=== PATIENT | female | born 1960 | race African-American/Black ===

== ENCOUNTER 2016-08-12 02:12 | Observation (INO) | payer MEDICARE, MEDICAID ==
[~2016-08-12] VITALS: Ht 157.5 cm; Wt 84.4 kg
[2016-08-12] VITALS (11 sets, daily range): BP systolic 81–104; BP diastolic 42–65
[~2016-08-12 02:12] MED LIST: ACTICIN; ASCO100083 PO; BACL10TA PO; BUPR150T14 PO; BUPR150T6 PO; CHOL5000 PO; CLIN300C3 PO; DEXL60CA PO; DEXL60CA5 PO; DULO60CA58 PO; DULO60CA6 PO; ERGO400C; ESTR-17 PO; ESTR0.5T; ESTR2TAB PO; FERR-47 PO; FEXO180T PO; FLUC200T PO; HCT25T PO; HUMULIN R; HYDR-757 PO; HYDR25CA5 PO; HYDR50TA3 PO; HYOS0.1232 SL; INDO25CA PO; INSU100V3; INSU100V6 SC; KETO-22 PO; LEVO100T7 PO; LIOT25TA3 PO; LIOT25TA4 PO; LISD50CA2 PO; LISD70CA3 PO; LISI40TA PO; LORA2TAB PO; LVT.1T PO; MAGN250T7 PO; METO-274 PO; METO50TA7 PO; METO5TAB79 PO; OXCA150T PO; OXYC1TAB87 PO; OXYC1TAB95; OXYC1TAB95 PO; OXYC5TAB PO; POLY255P PO; POTA99TA15 PO; PREG100C PO; PREG100C22 PO; PREN1COM PO; PRM5C60 TOP; PROG100C3 PO; PROP15DR28 OP; VITA1CAP21 PO; VIVELLE-DOT TOP; [UNRECOGNIZED DRUG - CODE]; [UNRECOGNIZED DRUG - CODE] PO; [UNRECOGNIZED DRUG - CODE] TP; [UNRECOGNIZED DRUG - OTHER] PO
--- OUTSIDE RECORDS SUMMARY | 2016-08-12 02:23 | XMS REPORT | Continuity of Care Document ---
Author Author [facility] Organization [facility] Address Unknown Phone Unavailable Care Team Providers Care Header Machine Operator Name Role Phone Jahaira Granado PCP [phone] Source Comments Some departments are not documenting in the electronic medical record. If you do not see the information that you expected, contact Release of Information in the Health Information Management department at [phone] for further assistance in locating additional records.[facility] Active Allergies and Adverse Reactions Allergen Noted Date Severity Reactions Comments Codeine 11/11/2006 Allergy recorded in SMS: Codeine Ibuprofen 11/11/2006 Allergy recorded in SMS: IBUPROFEN Metronidazole 11/11/2006 Allergy recorded in SMS: FLAGYL Mustard 10/05/2013 HIVES Hives in eyes Penicillins 11/11/2006 Allergy recorded in SMS: PENICILLINS Current Medications Prescription Sig. Disp. Refills Start End Date Status Date levothyroxine (SYNTHROID) Take 100 mcg by mouth Active 100 mcg tablet daily. liothyronine (CYTOMEL) 25 Take 25 mcg by mouth Active mcg Tab daily. metoprolol XL (TOPROL XL) Take 100 mg by mouth Active 100 mg tablet daily. lisinopril (PRINIVIL, Take 80 mg by mouth Active ZESTRIL) 40 mg tablet daily. baclofen (LIORESAL) 10 mg Take 10 mg by mouth three Active tablet times daily. pregabalin (LYRICA) 100 Take 100 mg by mouth Active mg capsule three times daily. hydrochlorothiazide Take 50 mg by mouth Active (HYDRODIURIL) 50 mg daily. tablet LORazepam (ATIVAN) 2 mg Take 1 mg by mouth at Active tablet bedtime daily. dexlansoprazole (+) Take 60 mg by mouth Active (DEXILANT) 60 mg capsule daily. buPROPion XL (WELLBUTRIN Take 300 mg by mouth Active XL) 300 mg tablet every morning. estradiol (ESTRACE) 2 mg Take 4 mg by mouth daily. Active tablet OXcarbazepine (TRILEPTAL) Take 150 mg by mouth at Active 150 mg tablet bedtime daily. ASCORBATE CALCIUM Take 4,000 mg by mouth Active (VITAMIN C PO) daily. ERGOCALCIFEROL (VITAMIN Take 5,000 Units by mouth Active D2) (VITAMIN D PO) daily. Carboxymethylcellulose-Gl Place into or around Active ycern (OPTIVE) 0.5-0.9 % eye(s). 4-5 times daily drop in each eye SAXagliptin-metformin Take 1 Tab by mouth Active (KOMBIGLYZE XR) 2.5-1,000 daily. mg TM24 fesoterodine ER(+) Take 4 mg by mouth daily. Active (TOVIAZ) 4 mg tablet dicyclomine (BENTYL) 10 Take 1 Cap by mouth three 90 Cap 5 06/05/20 Active mg capsule times daily as needed. [address] (CYMBALTA) Take 60 mg by mouth twice Active 60 mg capsule daily. polyethylene glycol 3350 MIX 17 GRAMS( 1 CAPFUL) 527 g 0 07/01/20 Active (GLYCOLAX; MIRALAX) 17 ONCE DAILY 16 gram/dose powder Active Problems Problem Noted Date Essential hypertension with goal blood pressure less than 140/90 01/23/2016 Overview: Formatting of this note may be different from the original. Hypertension Management: Medication adherent: all of the time Treatment goal: 140/90 Outside blood pressures being performed: Yes BP Readings from Last 3 Encounters: 04/26/14 113/68 11/30/13 153/98 11/02/13 164/76 She denies significant light-headedness. Imp: Hypertension controlled Plan: Discussed hypertension and reviewed goals. Are barriers to achieving goals present? No Medication education provided. Patient voiced understanding? Yes Patient able to self-manage and ready to comply? Yes Educational resources identified? Verbal Counseling Neuropathy (HCC) 01/23/2016 Overview: Continue lyrica Healthcare maintenance 01/23/2016 Overview: Formatting of this note may be different from the original. Health Maintenance Topic Date Due PHYSICAL (COMPREHENSIVE) EXAM 1965 PERTUSSIS VACCINE 1969 TETANUS VACCINE 1975 FOOT EXAM 1976 DILATED EYE EXAM 1976 MICROALBUMIN 1976 PNEUMONIA VACCINE (DM) 1976 CERVICAL CANCER SCREENING 1979 BREAST CANCER SCREENING 1998 COLORECTAL CANCER SCREENING 2008 HBA1C 03/21/2014 INFLUENZA VACCINE 03/27/2016 Abdominal pain 01/23/2016 Overview: 55 F with PMHx as below presenting today for abdominal pain and referral to surgery. She follows with an outside PCP. Site: LUQ, RUQ Onset: many years Progression: worse in the last 6 months Radiation: none Associated symptoms: denies any nausea and vomiting Timing: intermittent, daily Exacerbating factors: movement Relieving factors: PPI Severity: can be severe in intensity Patient complains of hernia in upper part of abdominal incision. She has had multiple abdominal surgeries starting with TAHBSO in 1998, colon rupture s/p repair in 2001, umblical hernia repair in 2001, hiatal hernia repair in 2002 complicated by another colon rupture s/p repair, incisional hernia repair W MESH in 2003 and cholecystectomy in 2012. Physical exam: small incisional hernia noted Plan Discussed with patient and daughter, patient will continue to follow with her outside PCP for her primary care needs We will help coordinating her CT scan and gen surgery referral and will see the patient 1-2 times an year as needed CT scan and gen surg referral ordered All questions answered Post-operative pain 10/19/2013 S/P total knee arthroplasty 10/19/2013 Diabetes mellitus (HCC) 10/18/2013 OA (osteoarthritis) of knee 10/18/2013 GERD (gastroesophageal reflux disease) 09/21/2013 Overview: Continue PPI Hypothyroidism 09/21/2013 Depression 09/21/2013 Overview: Continue wellbutrin and cymbalta HTN (hypertension) 09/21/2013 Diabetes (HCC) 09/21/2013 Overview: Formatting of this note may be different from the original. Diabetes Management: Diet adherent: all of the time Medication adherent: all of the time Patient is consistent with home glucose monitoring: Yes The patient has not had hypoglycemic reactions Lab Results Component Value Date/Time HEMOGLOBIN A1C 5.2 09/21/2013 12:25 PM CREATININE 0.75 10/21/2013 03:48 AM Microalbumin tested in last 12 months? Yes Eye exam within the last 12 months? Yes Comprehensive Foot exam within the last 12 months? Yes Pneumonia shot current? Yes The patient is taking a daily aspirin:Yes The patient is taking an MACY inhibitor or an ARB:Yes The patient is taking a statin:Yes Impression: Diabetes - under excellent control Plan: Discussed general issues about diabetes pathophysiology and management. Discussed exercise management and diet with emphasis on vegetables, fruit and lean meat. Discussed foot care. Reminded to get retinal exam annually and dental appointment every 6 months. Treatment goals: A1C < or=6.5 BP <140/90 Are barriers to achieving goals present? No Medication education provided. Patient voiced understanding? Yes Patient able to self-manage and ready to comply? Yes Educational resources identified? Verbal Counseling Primary localized osteoarthrosis, lower leg 09/21/2013 Pain in joint, lower leg 09/21/2013 Gout 09/21/2013 Hip joint replacement by other means 12/01/2007 Most Recent Encounters Date Type Specialty Providers Description 06/29/2016 Refill General Internal Medicine Portia Lozano MD 06/17/2016 Office Visit Gastroenterology Bobby Felder MD Generalized abdominal pain (Primary Dx); Gastroesophageal reflux disease without esophagitis; Chronic myofascial pain 06/04/2016 [facility] Nikky Tate MD Encounter 06/04/2016 [facility] Nikky Tate MD Encounter 06/04/2016 Office Visit Orthopedic Surgery Nikky Tate MD Hip joint replacement status (Primary Dx); Status post total right knee replacement [Z96.651] 06/04/2016 Telephone Gastroenterology Bobby Felder MD Medication Follow-up 06/04/2016 Ancillary Orthopedic Surgery Nikky Tate MD S/P hip replacement, Orders right (Primary Dx) 05/28/2016 [facility] Bobby Felder MD Encounter 05/28/2016 Endo Rslt Enc Dillon Jones MD 05/28/2016 Anesthesia Nikky Mclaughlin CRNA Event 05/28/2016 Ancillary Gastroenterology Bobby Felder MD Left upper quadrant pain Orders (Primary Dx) 05/28/2016 Surgery Bobby Felder MD ESOPHAGOGASTRODUODENOSCOP Y 05/21/2016 Surgery Bobby Felder MD HYDROGEN BREATH TEST 05/16/2016 Telephone Skyla Max RN Pre-Procedure Instructions 05/15/2016 Orders Only Orthopedic Surgery Nikky Tate MD Presence of right artificial knee joint (Primary Dx) Social History Tobacco Use Types Packs/Day Years Used Date Former Smoker Cigarettes 2 34 Smokeless Tobacco: Never Used Tobacco Cessation: Counseling Given: Yes Comments: Alcohol Use Drinks/Week oz/Week Comments Yes 0 Standard 0.0 occ drinks or equivalent Last Filed Vital Signs Vital Sign Reading Time Taken Blood Pressure 110/59 06/17/2016 1:58 PM PERSONNEL RESEARCH PSYCHOLOGIST Pulse 69 06/17/2016 1:58 PM PERSONNEL RESEARCH PSYCHOLOGIST Temperature 36.7 C (98 F) 06/17/2016 1:58 PM PERSONNEL RESEARCH PSYCHOLOGIST Respiratory Rate 18 04/18/2016 8:48 AM CDT Height 1.575 m (5' 2") 06/17/2016 1:58 PM PERSONNEL RESEARCH PSYCHOLOGIST Weight 86.456 kg (190 lb 9.6 oz) 06/17/2016 1:58 PM PERSONNEL RESEARCH PSYCHOLOGIST Body Mass Index 34.85 06/17/2016 1:58 PM PERSONNEL RESEARCH PSYCHOLOGIST Oxygen Saturation 95% 05/28/2016 10:33 AM CDT Plan of Care Date Type Specialty Providers Description 09/02/2016 Appointment General Internal Medicine Marck Granado MBBS [address] [facility] [address] [place] [address] [phone] (Fax) Health Maintenance Due Date Last Done Comments Hepatitis C Screening 1960 Physical (Comprehensive) 1965 Exam Pertussis Vaccine 1969 Tetanus Vaccine 1975 Dilated Eye Exam 1976 Foot Exam 1976 Microalbumin 1976 Pneumonia Vaccine (Dm) 1976 Cervical Cancer Screening 1979 Breast Cancer Screening 1998 Colorectal Cancer 2008 Screening Hba1c 03/21/2014 09/21/2013 Influenza Vaccine 03/27/2016 Procedures from Last 3 Months Procedure Name Priority Date/Time Associated Diagnosis Comments ESOPHAGOGASTRODUODENOSCOP 05/28/2016 Intestinal bacterial Y 9:30 AM CDT overgrowth Special Needs 1st Call / 1st Res - EGD - Cld pt & res appt 04/02/16 @ 137EGD - Pt lvms, wants to res appt due to a conflict w/another appt 04/02/16 @ 1033 PROCEDURES-SCAN 05/22/2016 Results for this 1:40 PM CDT procedure are in the results section. HYDROGEN BREATH TEST 05/21/2016 Intestinal bacterial 9:15 AM CDT overgrowth Special Needs 1st Call - Hydrogen Breath Test - Cld pt & sched appt 04/01/16 @ 120 Results from Last 3 Months HIP MIN 4 VIEWS W PELVIS RT (06/04/2016 11:05 AM) Impressions Stable appearance of right hip arthroplasty. Approved by Luis Fuentes M.D. on 06/04/2016 1:14 PM By my electronic signature, I attest that I have personally reviewed the images for this examination and formulated the interpretations and opinions expressed in this report Finalized by Tank Navarro M.D. on 06/04/2016 3:12 PM. Dictated by Luis Fuentes M.D. on 06/04/2016 11:15 AM. Narrative HIP MIN 4 VIEWS W PELVIS RT CLINICAL HISTORY: Female, 56 years old. pain. COMPARISON: Hip radiograph from April 20, 2013 TECHNIQUE:HIP MIN 4 VIEWS W PELVIS RT FINDINGS: There is redemonstration of a right hip arthroplasty. There is a non-fenestrated , smooth, tapered, noncemented femoral stem. The acetabular component is fixed with a single threaded screw. Alignment is satisfactory, and there is no evidence of periprosthetic fracture. Mild left hip arthropathy. Radiopaque density projects over the L4/5 interspace which may correlate to phleboliths noted on prior CT. Procedure Note Interface, Radiant Results - Wed Jun 04, 2016 3:15 PM PERSONNEL RESEARCH PSYCHOLOGIST HIP MIN 4 VIEWS W PELVIS RT CLINICAL HISTORY: Female, 56 years old. pain. COMPARISON: Hip radiograph from April 20, 2013 TECHNIQUE: HIP MIN 4 VIEWS W PELVIS RT FINDINGS: There is redemonstration of a right hip arthroplasty. There is a non-fenestrated , smooth, tapered, noncemented femoral stem. The acetabular component is fixed with a single threaded screw. Alignment is satisfactory, and there is no evidence of periprosthetic fracture. Mild left hip arthropathy. Radiopaque density projects over the L4/5 interspace which may correlate to phleboliths noted on prior CT. IMPRESSION Stable appearance of right hip arthroplasty. Approved by Luis Fuentes M.D. on 06/04/2016 1:14 PM By my electronic signature, I attest that I have personally reviewed the images for this examination and formulated the interpretations and opinions expressed in this report Finalized by Tank Navarro M.D. on 06/04/2016 3:12 PM. Dictated by Luis Fuentes M.D. on 06/04/2016 11:15 AM. KNEE 3 VIEWS RIGHT (06/04/2016 11:05 AM) Impressions Findings/Impression: 1. There is a right total knee arthroplasty with resurfacing of patella redemonstrated. No abnormal periprosthetic lucency. No acute osseous abnormality 2. There is decreased anterior soft tissue swelling and decreased joint effusion. Finalized by Ilya Galloway M.D. on 06/04/2016 11:12 AM. Dictated by Ilya Galloway M.D. on 06/04/2016 11:11 AM. Narrative KNEE 3 VIEWS RIGHT Indication: S/P Total Knee. Presence of right artificial knee joint Comparison: April 26, 2014 Procedure Note Interface, Radiant Results - Wed Jun 04, 2016 11:16 AM PERSONNEL RESEARCH PSYCHOLOGIST KNEE 3 VIEWS RIGHT Indication: S/P Total Knee. Presence of right artificial knee joint Comparison: April 26, 2014 IMPRESSION Findings/Impression: 1. There is a right total knee arthroplasty with resurfacing of patella redemonstrated. No abnormal periprosthetic lucency. No acute osseous abnormality 2. There is decreased anterior soft tissue swelling and decreased joint effusion. Finalized by Ilya Galloway M.D. on 06/04/2016 11:12 AM. Dictated by Ilya Galloway M.D. on 06/04/2016 11:11 AM. POC GLUCOSE (05/28/2016 9:49 AM) Component Value Range Glucose, POC 123 (H) 70-100 MG/DL EGD (05/28/2016 9:41 AM) Component Value Range Provation Report Patient Name: Caty Villagomez Procedure Date: 05/28/2016 9:41 AM CSN: [id number] Date of : 1960 Gender: Female Attending Physician: Bobby Felder MD Procedure: Upper GI endoscopy Indications: Ge neralized abdominal pain, Suspected esophageal reflux Providers: Bobby Felder MD (Doctor), Trinh Light (Nurse), Jose Scanlon Application Processor (Application Processor) Referring Physician: Dillon Jones Medications: Mo nitored Anesthesia Care Complications: No immediate complications. Procedure: Pre-Anesthesia Assessment: - Prior to the procedure, a History and Physical was performed, and patient medications and allergies were reviewed. The patient's tolerance of previous anesthesia was also reviewed. The risks and benefits of the procedure and the sedation options and risks were discussed with the patient. All questions were answered, and informed consent was obtained. Prior Anticoagulants: The patient has taken no previous anticoagulant or antiplatelet agents. ASA Grade Assessment: III - A patient with severe systemic disease. After reviewing the risks and benefits, the patient was deemed in satisfactory condition to undergo the procedure. After obtaining informed consent, the endoscope was passed under direct vision. Throughout the procedure, the patient's blood pressure, pulse, and oxygen saturations were monitored continuously. The Endoscope [id number] was introduced through the mouth, and advanced to the third part of duodenum. The upper GI endoscopy was accomplished without difficulty. The patient tolerated the procedure well. Findings: Esophagogastric landmarks were identified: the gastroesophageal junction was found at 38 cm from the incisors. The examined esophagus was normal. No Stack's esophagus was seen with HD white light or NBI. A medium amount of food (residue) was found in the gastric body. Changes of in tact fundoplication wrap seen on retroflexion. The entire examined stomach was normal. The examined duodenum was normal. Impression: - Esophagogastric landmarks identified. - Normal esophagus. No Stack's was seen. - A medium amount of food (residue) in the stomach. - Normal stomach. In tact wrap seen on retroflexion. - Normal examined duodenum. - No specimens collected. Estimated Blood Loss: Estimated blood loss: none. Recommendation: - Patient has a contact number available for emergencies. The signs and symptoms of potential delayed complications were discussed with the patient. Return to normal activities tomorrow. Written discharge instructions were provided to the patient. - Resume previous diet. - Continue present medications. Scope In: 10:05:34 AM Scope Out: 10:10:04 AM Total Procedure Duration Time 0 hours 4 minutes 30 seconds Procedure Code(s): --- Professional --- 88452, Esophagogastroduodenoscopy, flexible, transoral; diagnostic, including collection of specimen(s) by brushing or washing, when performed (separate procedure) Diagnosis Code(s): --- Professional --- R10.84, Generalized abdominal pain CPT copyright 2015 [employer]. All rights reserved. The codes documented in this report are preliminary and upon dipping machine operator review may be revised to meet current compliance requirements. Attending Participation: I personally performed the entire procedure. MD Bobby Nelson MD 05/28/2016 10:13:46 AM The attending physician has electronically signed and finalized this document. Number of Addenda: 0 Note Initiated On: 05/28/2016 9:41 AM US ABDOMEN LIMITED (05/28/2016 7:58 AM) Impressions Postsurgical changes of prior abdominal wall hernia repair. No evidence of recurrent abdominal wall hernia. Approved by Irene Cyr M.D. on 05/28/2016 11:43 AM By my electronic signature, I attest that I have personally reviewed the images for this examination and formulated the interpretations and opinions expressed in this report Finalized by Allegra Ohara M.D. on 05/28/2016 5:35 PM. Dictated by Irene Cyr M.D. on 05/28/2016 8:19 AM. Narrative Limited abdominal ultrasound. HISTORY: 56-year-old female with history of prior abdominal surgeries. Left upper quadrant pain. Evaluate for hernias. TECHNIQUE: Multiple real-time grayscale sonographic images were obtained of the areas of interest of the abdomen. Additional color Doppler images were obtained. COMPARISON: Correlation is made with CT of the abdomen and pelvis February 01, 2016. FINDINGS: Focused imaging of the abdomen was performed in the right lower quadrant and left lower quadrant as directed by the patient for areas of pain and palpable concern. At both of these sites, there is mild irregularity at the anterior margin of the rectus musculature. On Valsalva maneuver, there is no evidence of herniated content, omental fat or bowel, through an abdominal wall defect. No fluid collection or mass is identified in the subcutaneous tissues. In the left lower quadrant, small focal areas of shadowing noted, likely postoperative in nature. Procedure Note Interface, Radiant Results - ThuMay 28, 2016 5:38 PM CDT Limited abdominal ultrasound. HISTORY: 56-year-old female with history of prior abdominal surgeries. Left upper quadrant pain. Evaluate for hernias. TECHNIQUE: Multiple real-time grayscale sonographic images were obtained of the areas of interest of the abdomen. Additional color Doppler images were obtained. COMPARISON: Correlation is made with CT of the abdomen and pelvis February 01, 2016. FINDINGS: Focused imaging of the abdomen was performed in the right lower quadrant and left lower quadrant as directed by the patient for areas of pain and palpable concern. At both of these sites, there is mild irregularity at the anterior margin of the rectus musculature. On Valsalva maneuver, there is no evidence of herniated content, omental fat or bowel, through an abdominal wall defect. No fluid collection or mass is identified in the subcutaneous tissues. In the left lower quadrant, small focal areas of shadowing noted, likely postoperative in nature. IMPRESSION Postsurgical changes of prior abdominal wall hernia repair. No evidence of recurrent abdominal wall hernia. Approved by Irene Cyr M.D. on 05/28/2016 11:43 AM By my electronic signature, I attest that I have personally reviewed the images for this examination and formulated the interpretations and opinions expressed in this report Finalized by Allegra Ohara M.D. on 05/28/2016 5:35 PM. Dictated by Irene Cyr M.D. on 05/28/2016 8:19 AM. PROCEDURES-SCAN (05/22/2016 1:40 PM) Narrative Ordered by an unspecified provider.
[2016-08-12] MEDS ORDERED: NS IV 1000 ML 1,000 ML IV ONE ×2 (02:25→04:09)
[2016-08-12 02:28] LABS: ABG BASE EXCESS -2.5 MMOL/L (-2.5-2.5); ABG HCO3 24 MMOL/L (23-27); ABG OXYGEN SATURATION 96 % (94-100); ABG PCO2 48 MMHG (35-45); ABG PO2 82 MMHG (79-93)
[2016-08-12 02:31] LABS: ABG PH 7.32 (7.37-7.43); ALLENS TEST YES-POS
[2016-08-12 02:34] LABS: BASOPHILS % (AUTO) 0 % (0-10); EOSINOPHILS % (AUTO) 0 % (0-10); LYMPHOCYTES # (AUTO) 1.3 X 10^3 (1.0-4.0); LYMPHOCYTES % (AUTO) 10 % (12-44); MEAN CORPUSCULAR HEMOGLOBIN 30 PG (25-34); MEAN CORPUSCULAR HGB CONC 33 G/DL (32-36); MEAN CORPUSCULAR VOLUME 89 FL (80-99); MEAN PLATELET VOLUME 12.1 FL (7.4-10.4); MONOCYTES # (AUTO) 1.2 X 10^3 (0.0-1.0); MONOCYTES % (AUTO) 9 % (0-12); NEUTROPHILS # (AUTO) 10.9 X 10^3 (1.8-7.8); NEUTROPHILS % (AUTO) 81 % (42-75); PLATELET COUNT 307 10^3/uL (130-400); RED BLOOD COUNT 4.34 10^6/uL (4.35-5.85); RED CELL DISTRIBUTION WIDTH 12.9 % (10.0-14.5); WHITE BLOOD COUNT 13.4 10^3/uL (4.3-11.0)
--- NOTE | 2016-08-12 02:38 | ED General ---
General Chief Complaint: Altered Mental Status Stated Complaint: VOMITING,NAUSEA Nursing Triage Note: Ems brought in by EMS. Daughter reports that patient has been lethargic Nursing Sepsis Screen: No Definite Risk Source of Information: EMS, Old Records Exam Limitations: Other (PT UNABLE TO GIVE ANY RELEVANT INFORMATION, SHE IS VERY DROWSY AND FALLS ASLEEP MID-SENTENCE) History of Present Illness Time Seen by Provider: 02:13 Initial Comments PT ARRIVES VIA EMS FROM HOME PT REPORTEDLY HAS HAD ALTERED MENTAL STATUS SINCE 2300 TONIGHT--"IN AND OUT OF CONSCIOUSNESS" PT WAS SITTING IN CHAIR AND WAS AWAKE ON THEIR ARRIVAL AT SCENE. PT SLEPT THE ENTIRE WAY HERE, BUT EASILY AWAKENED. PT C/O DIZZINESS AND HAS HAD NAUSEA. NO REPORTED VOMITING ACCUCHECK 224 BY EMS. NO OTHER INFORMATION IS OBTAINABLE ON ARRIVAL. DAUGHTER ARRIVES LATER, AND REPORTS THAT PT HAD TOLD HER THAT SHE HAD NOT FELT GOOD ALL DAY, BUT DID GO OUT AND RUN ERRANDS EARLIER, BUT WAS NOT FEELING WELL, BUT DID NOT STATE IN WHAT WAY SHE FELT BAD DAUGHTER FOUND HER AT 2300 TONIGHT IN THE BATHROOM VOMITING--EMESIS X 4 NO DIARRHEA NO ABDOMINAL PAIN PT C/O BEING DIZZY AT THAT TIME. PCP: DR. DURAN Allergies and Home Medications Allergies Coded Allergies: codeine (Verified Allergy, Unknown, 02/27/06) ibuprofen (Verified Allergy, Unknown, 02/27/06) metronidazole (Verified Allergy, Unknown, 02/27/06) penicillin G (Verified Allergy, Unknown, 02/27/06) Home Medications 12.5 MG PO DAILY (Reported) Baclofen 10 Mg Tablet #90 (Reported) Bupropion HCl 150 Mg Tablet.er #60 (Reported) Dexlansoprazole 60 Mg Cap.bp #60 (Reported) Dicyclomine HCl 10 Mg Capsule #90 (Reported) Duloxetine HCl 60 Mg Capsule.dr #30 (Reported) Estradiol 2 Mg Tablet #90 (Reported) Hydrochlorothiazide 50 Mg Tablet #90 (Reported) Insulin Regular, Human 1,000 Units/10 Ml Soln #20 (Reported) Levothyroxine Sodium 100 Mcg Tablet #30 (Reported) Liothyronine Sodium 25 Mcg Tablet #180 (Reported) Lisinopril 40 Mg Tablet #180 (Reported) Lorazepam 2 Mg Tablet #30 (Reported) Metoprolol Succinate 100 Mg Tab.er.24h #90 (Reported) Oxcarbazepine 150 Mg Tablet #180 (Reported) Polyethylene Glycol 3350 255 Gm Powder #527 (Reported) Pregabalin 100 Mg Capsule #90 (Reported) Prenat Vit Comb.10/Iron/Fa/Dha 1 Each Combo..pkg 1 EACH PO DAILY (Reported) Propylene Glycol/Peg 400 15 Ml Drp.lq.gel 15 ML OP QID (Reported) 2 DROPS IN EACH EYE QID Saxagliptin HCl/Metformin HCl 1 Each Tbmp.24hr #85 (Reported) Solifenacin Succinate 5 Mg Tablet #85 (Reported) Turmeric 1 Gm Powder 0.5 GM PO (Reported) Vitamin B Complex 1 Cap Capsule 1 CAP PO DAILY (Reported) Constitutional: see HPI dizziness malaise other (UNABLE TO OBTAIN ANY RELEVANT INFORMATION FROM PT, OTHER THAN SHE STATES SHE IS DIZZY) Psychiatric/Neurological: See HPI Past Hqyqexg-Aommuz-Dyeryu Hx Patient Social History Alcohol Use: Rarely Uses Recreational Drug Use: No Smoking Status: Current Everyday Smoker (1/2 PPD) Type Used: Cigarettes Recent Foreign Travel: No Contact w/Someone Who Travel: No Recent Infectious Disease Expo: No Recent Hopitalizations: No Physical Abuse Screen: No Sexual Abuse: No Immunizations Up To Date Tetanus Booster (TDap): Unknown Surgeries HX Surgeries: Yes (EGD/COLONSCOPY; HIATAL HERNIA REPAIR; 11 SURGERIES ON ABDOMEN-PT DOES NOT KNOW WHAT KIND OF SURGERIES, "INTESTINES RUPTURED"-POSSIBLE VALENTIN:, HERNIA REPAIRS, DIVERTICULTITS; 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 Genitourinary Hx Genitourinary Disorders: No Gastrointestinal Hx Gastrointestinal Disorders: Yes (GASTRITIS) Gastrointestinal Disorders: Abdominal Hernia, Gastroesophageal Reflux, Diverticulosis, Esophagitis, Hiatal Hernia Musculoskeletal Hx Musculoskeletal Disorders: Yes (CHRONIC GENERALIZED PAIN, RIGHT KNEE TORN ACL; LEFT BKA 1960 FROM DEFECT) Musculoskeletal Disorders: Amputee, Chronic Back Pain, Gout Endocrine Hx Endocrine Disorders: Yes Endocrine Disorders: Diabetes, Insulin dep, Hypothyroidsim HEENT HX ENT Disorders: No Cancer Hx Cancer: No Psychosocial Hx Psychiatric Problems: Yes Behavioral Health Disorders: Anxiety Integumentary HX Skin/Integumentary Disorder: No Blood Transfusions Hx Blood Disorders: No Adverse Reaction to a Blood Tr: No Physical Exam Vital Signs Vital Sign - Last 12Hours 08/12/16 02:12 Temp 96.0 Pulse 67 Resp 16 B/P 108/52 Pulse Ox 97 O2 Delivery Room Air O2 Flow Rate 2 Capillary Refill : Less Than 3 Seconds General Appearance: No Apparent Distress Obese HEENT: PERRL/EOMI (PUPILS 2-3 MM/EQUAL/SOMEWHAT SLUGGISH) Neck: Full Range of Motion Normal Inspection Non Tender SuppleNo Carotid Bruit , No JVD Respiratory: Normal Breath Sounds No Accessory Muscle Use No Respiratory Distress Cardiovascular: Regular Rate, Rhythm No Edema No JVD No Murmur Gastrointestinal: Normal Bowel Sounds No Organomegaly No Pulsatile Mass Non Tender Soft Extremity: Non Tender No Calf Tenderness No Pedal Edema Other (LEFT LEG BKA; RIGHT LEG VERY COOL, BUT WITH FAIR CAPILLARY REFILL. UNALBE TO PALPATE PULSE IN RIGHT FOOT. ) Neurologic/Psychiatric: Other (COLIN DROWSY, BRIEFLY WAKENS TO VERBAL AND TACTILE STIMULI, SMILES AND LAUGHS A LITTLE, ANSWERS A VERY FEW SIMPLE QUESTIONS , THEN FALLS BACK ASLEEP MID-SENTENCE. NO SIGNIFICANT SLURRED SPEECH. MOTOR / SENSORY GROSSLY INTACT) Skin: Normal Color Warm/Dry Progress/Results/Core Measures Results/Orders Lab Results Laboratory Tests Test 08/12/16 02:22 08/12/16 02:24 08/12/16 02:25 08/12/16 03:04 Range/Units Glucometer 256 H 70-110 MG/DL Kilo Test YES-POS Arterial Blood Base Excess -2.5 -2.5-2.5 MMOL/L Arterial Blood HCO3 24 23-27 MMOL/L Arterial Blood Oxygen Saturation 96 94-100 % Arterial Blood Partial Pressure CO2 48 H 35-45 MMHG Arterial Blood Partial Pressure O2 82 79-93 MMHG Arterial Blood Total CO2 26.0 21.0-31.0 MMOL/L Arterial Blood pH 7.32 *L 7.37-7.43 Blood Gas Inspired Oxygen ROOM AIR Blood Gas Patient Temperature 96.0 Blood Gas Puncture Site LEFT RADIAL Blood Gas Ventilator Setting NO Acetaminophen Level < 10 L 10-30 UG/ML Activated Partial Thromboplast Time 27 24-35 SEC Alanine Aminotransferase (ALT/SGPT) 14 0-55 U/L Albumin 3.8 3.2-4.5 G/DL Alkaline Phosphatase 52 40-136 U/L Amylase Level 59 25-125 U/L Anion Gap 17 H 5-14 MMOL/L Aspartate Amino Transf (AST/SGOT) 10 5-34 U/L BUN/Creatinine Ratio 9 Basophils # (Auto) 0.0 0.0-0.1 10^3/uL Basophils (%) (Auto) 0 0-10 % Blood Urea Nitrogen 31 H 7-18 MG/DL Calcium Level 9.2 8.5-10.1 MG/DL Carbon Dioxide Level 19 L 21-32 MMOL/L Chloride Level 102 98-107 MMOL/L Creatinine 3.58 H 0.60-1.30 MG/DL Eosinophils # (Auto) 0.0 0.0-0.3 10^3/uL Eosinophils (%) (Auto) 0 0-10 % Estimat Glomerular Filtration Rate 16 Free Thyroxine 0.78 0.70-1.48 NG/DL Glucose Level 232 H 70-105 MG/DL Hematocrit 39 35-52 % Hemoglobin 12.8 11.5-16.0 G/DL INR Comment 1.0 0.8-1.4 Lipase 34 8-78 U/L Lymphocytes # (Auto) 1.3 1.0-4.0 X 10^3 Lymphocytes (%) (Auto) 10 L 12-44 % Magnesium Level 2.1 1.8-2.4 MG/DL Mean Corpuscular Hemoglobin 30 25-34 PG Mean Corpuscular Hemoglobin Concent 33 32-36 G/DL Mean Corpuscular Volume 89 80-99 FL Mean Platelet Volume 12.1 H 7.4-10.4 FL Monocytes # (Auto) 1.2 H 0.0-1.0 X 10^3 Monocytes (%) (Auto) 9 0-12 % Neutrophils # (Auto) 10.9 H 1.8-7.8 X 10^3 Neutrophils (%) (Auto) 81 H 42-75 % Platelet Count 307 130-400 10^3/uL Potassium Level 4.1 3.6-5.0 MMOL/L Prothrombin Time 12.9 12.2-14.7 SEC Red Blood Count 4.34 L 4.35-5.85 10^6/uL Red Cell Distribution Width 12.9 10.0-14.5 % Serum Alcohol < 10 <10 MG/DL Sodium Level 138 135-145 MMOL/L TSH [place] Testing 0.31 L 0.35-4.94 UIU/ML Total Bilirubin 0.3 0.1-1.0 MG/DL Total Protein 6.6 6.4-8.2 G/DL White Blood Count 13.4 H 4.3-11.0 10^3/uL Ur Tricyclic Antidepressants Screen NEGATIVE NEGATIVE Urine Amphetamines Screen NEGATIVE NEGATIVE Urine Bacteria MODERATE H /HPF Urine Barbiturates Screen NEGATIVE NEGATIVE Urine Benzodiazepines Screen POSITIVE H NEGATIVE Urine Bilirubin 1+ H NEGATIVE Urine Cannabinoids Screen NEGATIVE NEGATIVE Urine Casts PRESENT /LPF Urine Clarity CLEAR Urine Cocaine Screen NEGATIVE NEGATIVE Urine Color YELLOW Urine Crystals NONE /LPF Urine Culture Indicated YES Urine Glucose (UA) NEGATIVE NEGATIVE Urine Hyaline Casts 2-5 H /LPF Urine Ketones NEGATIVE NEGATIVE Urine Leukocyte Esterase 1+ H NEGATIVE Urine Methadone Screen NEGATIVE NEGATIVE Urine Methamphetamines Screen NEGATIVE NEGATIVE Urine Mucus NEGATIVE /LPF Urine Nitrite NEGATIVE NEGATIVE Urine Opiates Screen NEGATIVE NEGATIVE Urine Oxycodone Screen NEGATIVE NEGATIVE Urine Phencyclidine Screen NEGATIVE NEGATIVE Urine Propoxyphene Screen NEGATIVE NEGATIVE Urine Protein 2+ H NEGATIVE Urine RBC NONE /HPF Urine RBC (Auto) NEGATIVE NEGATIVE Urine Specific [place] 1.020 1.016-1.022 Urine Squamous Epithelial Cells 2-5 /HPF Urine Urobilinogen NORMAL NORMAL MG/DL Urine WBC 0-2 /HPF Urine pH 5 5-9 My Orders Orders-SHARMIN TABARES DO Arterial Blood Gas (08/12/16 02:24) Accucheck Stat ONCE (08/12/16 02:25) Saline Lock/Iv-Start (08/12/16 02:25) Ekg Tracing (08/12/16 02:25) Catheter(Urinary) Insert & Ass 03,15 (08/12/16 02:25) O2 (08/12/16 02:25) Monitor-Rhythm Ecg Trace Only (08/12/16 02:25) Acetaminophen (08/12/16 02:25) Alcohol (08/12/16 02:25) Amylase (08/12/16 02:25) Cbc With Automated Diff (08/12/16 02:25) Comprehensive Metabolic Panel (08/12/16 02:25) Drug Screen Stat (Urine) (08/12/16 02:25) Lipase (08/12/16 02:25) Magnesium (08/12/16 02:25) Protime With Inr (08/12/16 02:25) Partial Thromboplastin Time (08/12/16 02:25) Thyroid Analyzer (08/12/16 02:25) Ua Culture If Indicated (08/12/16 02:25) Chest 1 View, Ap/Pa Only (08/12/16 02:25) Ct Head Wo (08/12/16 02:25) Ns Iv 1000 Ml (Sodium Chloride 0.9%) (08/12/16 02:25) Free T4 (Free Thyroxine) (08/12/16 02:25) Urine Culture (08/12/16 03:04) Saline Lock/Iv-Start (08/12/16 04:09) Ns Iv 1000 Ml (Sodium Chloride 0.9%) (08/12/16 04:09) Medications Given in ED Current Medications Medications Dose Ordered Sig/Val Route Start Time Stop Time Status Last Admin Dose Admin Sodium Chloride 1,000 ml @ 0 mls/hr Q0M ONCE IV 08/12/16 02:25 08/12/16 02:31 DC 08/12/16 03:16 0 MLS/HR Vital Signs/I&O Vital Sign - Last 12Hours 08/12/16 08/12/16 08/12/16 08/12/16 02:12 02:12 04:07 05:03 Temp 96.0 Pulse 67 72 59 Resp 16 15 B/P 108/52 Pulse Ox 97 100 100 O2 Delivery Room Air Nasal Cannula O2 Flow Rate 2 Blood Pressure Mean: 70 Point of Care Testing Finger Stick Blood Glucose: 229 Blood Glucose Action Taken: RN and Dr notified Progress Note : Progress Note ACCUCHECK 229 O2 SATS DROP INTO MID 80'S ON ROOM AIR WHILE SLEEPING. UP TO UPPER 90'S ON O2 AT 2L/NC. BP GRADUALLY WENT DOWN PT CONTINUED TO SLEEP --GIVEN FLUID BOLUS AND WITH AWAKENING PT, BP IS UP TO > 90 SYSTOLIC AT ADMIT. 0255--PT BRIEFLY AWAKE, SMILING AND LAUGHING A LITTLE, BUT STILL VERY DROWSY. STATES SHE TOOK LORAZEPAM TO SLEEP TONIGHT AND WENT TO BED EARLY. STATES DAUGHTER STAYS WITH HER SOME NIGHTS, BUT NOT EVERY NIGHT. ( DAUGHTER IS NOT PRESENT AT THIS TIME) ECG Initial ECG Impression Time: 02:35 Initial ECG Rate: 70 Initial ECG Rhythm: Normal Sinus Initial ECG Comparisson: Unchanged Diagnostic Imaging Comments CT HEAD--NO ACUTE PROCESS, PER STAT RAD VIA FAX @ [id number] Reviewed: Reviewed by Me Departure Communication Progress Notes [id number]--SPOKE WITH DR. GARCIA, ACCEPTS PT FOR ADMIT. Impression Impression: Primary Impression: ESCESSIVE SOMNOLENCE Additional Impressions: S/P LORAZEPAM DOSE TO INDUCE SLEEP RENAL FAILURE Hypoxia, sleep related Hypotension Nausea & vomiting Dizziness Disposition: 09 ADMITTED INPATIENT Condition: Stable Decision to Admit Reason: Admit from ER (General) Decision to Admit/Date: Aug 12, 2016 Time/Decision to Admit Time: 03:35 Departure-Patient Inst. Referrals: NO,LOCAL PHYSICIAN (PCP/Family) Primary Care Physician SHARMIN TABARES DO Aug 12, 2016 02:38
[2016-08-12 02:45] LABS: PROTHROMBIN TIME PATIENT 12.9 SEC (12.2-14.7)
[2016-08-12 02:53] LABS: ALANINE AMINOTRANSFERASE 14 U/L (0-55); ALBUMIN 3.8 G/DL (3.2-4.5); AMYLASE 59 U/L (25-125); ANION GAP 17 MMOL/L (5-14); ASPARTATE AMINO TRANSFERASE 10 U/L (5-34); BILIRUBIN,TOTAL 0.3 MG/DL (0.1-1.0); BLOOD UREA NITROGEN 31 MG/DL (7-18); BUN/CREATININE RATIO 9; CALCIUM 9.2 MG/DL (8.5-10.1); CARBON DIOXIDE 19 MMOL/L (21-32); CHLORIDE 102 MMOL/L (98-107); CREATININE SERUM 3.58 MG/DL (0.60-1.30); GFR ESTIMATED 16; GLUCOSE 232 MG/DL (70-105); LIPASE 34 U/L (8-78); MAGNESIUM 2.1 MG/DL (1.8-2.4); POTASSIUM 4.1 MMOL/L (3.6-5.0); SODIUM 138 MMOL/L (135-145); TOTAL PROTEIN 6.6 G/DL (6.4-8.2)
[2016-08-12 03:05] LABS: ACETAMINOPHEN < 10 UG/ML (10-30); ALCOHOL < 10 MG/DL (<10)
[2016-08-12 03:12] LABS: BILIRUBIN,URINE 1+ (NEGATIVE); KETONES,URINE NEGATIVE (NEGATIVE); LEUKOCYTE ESTERASE ,URINE 1+ (NEGATIVE); NITRITE,URINE NEGATIVE (NEGATIVE); PH,URINE 5 (5-9); PROTEIN,URINE 2+ (NEGATIVE); UROBILINOGEN,URINE NORMAL (NORMAL)
[2016-08-12 03:30] LABS: WBC,URINE 0-2 /HPF
[2016-08-12] MEDS ORDERED: NF-SOLIF5T PO (03:30)
[2016-08-12] MEDS ORDERED: iodoral PO (03:30)
[2016-08-12] MEDS ORDERED: DICY10CA12 PO (03:30)
[2016-08-12] MEDS ORDERED: SAXA1TBM3 PO (03:30)
[2016-08-12] MEDS ORDERED: TURM1POW PO (03:31)
[2016-08-12] MEDS: NS IV 1000 ML 1,000 ML IV SCH ×3 (05:30→19:01)
[2016-08-12] MEDS ORDERED: ONDANSETRON 4 MG/2 ML (SDV) Z0FRAN IV PRN (05:45)
[2016-08-12] MEDS ORDERED: MECLIZINE 25 MG (ANTIVERT) TAB PO PRN (06:00)
[2016-08-12] MEDS: inSUlin (REGULAR) HUMAN 1 UNIT/0.01 ML (CHARGE PER UNIT) SC SCH ×4 (06:00→20:41)
[2016-08-12] MEDS ORDERED: FLU TRIvalent (5 YOA+) 2016-17 (AFLURIA) 0.5 ML IM ONE (07:45)
[2016-08-12] MEDS ORDERED: CATHETER FLUSH 10 ML SYR IV PRN (07:45)
--- NOTE | 2016-08-12 08:12 | Diagnostic Imaging Report ---
INDICATION: Altered mental status Noncontrast brain CT is performed. There were no extra-axial fluid collections. No intracranial hemorrhage. No intracranial mass or mass effect. No midline shift. The ventricles are normal in size and position. There were no focal parenchymal abnormalities in the brain. Calvarial windows were unremarkable. IMPRESSION: Negative noncontrast brain CT. Dictated by: Dictated on workstation # [id number]
--- NOTE | 2016-08-12 08:19 | Diagnostic Imaging Report ---
Portable upright radiograph of the chest. INDICATION: Altered mental status. FINDINGS: There is poor inspiration on this exam. There is mild cardiomegaly with thickening of the interstitial markings which could also be secondary to poor inspiration; however, mild vascular congestion or interstitial infiltrates could be present. No significant effusion. No pneumothorax. IMPRESSION: Low lung volumes with question of interstitial infiltrates or vascular congestion. Correlate clinically and with followup 2 views of the chest recommended. Dictated by: Dictated on workstation # [id number]
[2016-08-12 08:33] LABS: ALBUMIN 3.3 G/DL (3.2-4.5); BILIRUBIN,TOTAL 0.2 MG/DL (0.1-1.0); CALCIUM 8.1 MG/DL (8.5-10.1); CREATININE SERUM 2.42 MG/DL (0.60-1.30); POTASSIUM 4.4 MMOL/L (3.6-5.0); TOTAL PROTEIN 5.8 G/DL (6.4-8.2)
[2016-08-12] MEDS ORDERED: NITROFURANTOIN 100 MG (MACROBID) CAPSULE PO SCH (09:00)
--- NOTE | 2016-08-12 10:39 | History & Physical-Hospitalist ---
HPI History of Present Illness: HPI/Chief Complaint Mrs. Goode is a 56-year-old black female whose daughter who is also her primary caregiver found her a lot around 11 p.m. slumped over the toilet she been having some nausea there was not any apparent evidence for emesis or hematemesis that she was very lethargic. EMS services were contacted and she was brought to the emergency room where due to somnolence she was unable to give any history. The daughters the bedside and all history is taken from the daughter. Apparently she had not been feeling well for the past 48 hours she had a dry cough with loss of appetite. She apparently was not complaining about sore throat or head congestion symptoms and also there was no diarrhea or abdominal pain reported. She is on multiple sedating medications and had taken lorazepam 2 mg around 5 o'clock p.m. The daughter does report her mother has complained about sedation on her current medication list and that her by mouth intake had been much less than usual over the past 48 hours as she normally does consume in her daughter's estimate a lot of water but really wasn't specific about the amount. She currently sees Dr. Jones Date Seen 08/12/16 Attending Physician Kaushal Shore MD PCP No,Local Physician Referring Physician Date of Admission Aug 12, 2016 at 03:35 Home Medications & Allergies Home Medications Reviewed patient Home Medication Reconciliation Form Allergies Coded Allergies: codeine (Verified Allergy, Unknown, 02/27/06) ibuprofen (Verified Allergy, Unknown, 02/27/06) metronidazole (Verified Allergy, Unknown, 02/27/06) penicillin G (Verified Allergy, Unknown, 02/27/06) Past Pemujin-Vbrcmi-Jeectn Hx Patient Social History Alcohol Use: Rarely Uses Recreational Drug Use: No Smoking Status: Current Someday Smoker Type Used: Cigarettes Physical Abuse Screen: No Sexual Abuse: No Recent Foreign Travel: No Contact w/other who traveled: No Recent Hopitalizations: No Recent Infectious Disease Expo: No Immunizations Up To Date Tetanus Booster (TDap): Unknown Seasonal Allergies Seasonal Allergies: No Surgeries HX Surgeries: Yes (EGD/COLONSCOPY; HIATAL HERNIA REPAIR; 11 SURGERIES ON ABDOMEN-PT DOES NOT KNOW WHAT KIND OF SURGERIES, "INTESTINES RUPTURED"-POSSIBLE VALENTIN:, HERNIA REPAIRS, DIVERTICULTITS; LEFT BKA 1960 DUE TO DEFECT; HYST/ BSO) Surgeries: Abdominal, Amputation (LEFT BKA 1959 DUE TO DEFECT), Appendectomy, Bowel Surgery, Gallbladder (?? POSSIBLY ??), Hysterectomy, Oophorectomy, Orthopedic Respiratory Hx Respiratory Disorders: No Cardiovascular Hx Cardiovascular Disorders: Yes Cardiac Disorders: Hypertension Neurological Hx Neurological Disorders: Yes Neurological Disorders: Neuropathy Reproductive System Hx Reproductive Disorders: Yes (HYST) Genitourinary Hx Genitourinary Disorders: No Gastrointestinal Hx Gastrointestinal Disorders: Yes (GASTRITIS) Gastrointestinal Disorders: Abdominal Hernia, Gastroesophageal Reflux, Stack' s Esophagus, Diverticulosis, Esophagitis, Hiatal Hernia Musculoskeletal Hx Musculoskeletal Disorders: Yes (CHRONIC GENERALIZED PAIN, RIGHT KNEE TORN ACL; LEFT BKA 1959 FROM DEFECT) Musculoskeletal Disorders: Amputee, Chronic Back Pain, Gout Endocrine Hx Endocrine Disorders: Yes Endocrine Disorders: Diabetes, Insulin dep, Hypothyroidsim HEENT HX ENT Disorders: No Cancer Hx Cancer: No Psychosocial Hx Psychiatric Problems: Yes Behavioral Health Disorders: Sleep Difficulties, Anxiety Integumentary HX Skin/Integumentary Disorder: No Blood Transfusions Hx Blood Disorders: No Adverse Reaction to a Blood Tr: No Review of Systems ROS-Unable to Obtain: Unobtainable due to altered mental status Constitutional: see HPI Physical Exam Physical Exam Vital Signs Vital Sign - Last 12Hours 08/12/16 02:12 Temp 96.0 Pulse 67 Resp 16 B/P 108/52 Pulse Ox 97 O2 Delivery Room Air O2 Flow Rate 2 Capillary Refill : Less Than 3 Seconds General Appearance: No Apparent Distress Other (Sleeping soundly minimal movement with physical stimulation and no response to verbal stimulation) HEENT: Other (Pupils were equal round and reactive to light unable to visualize pharynx mucous membranes slightly dry) Respiratory: Chest Non Tender Other (Lizeth's breathing respiratory rate 12 and nonlabored no wheezing noted sensory muscle use breath sounds equal bilaterally) Cardiovascular: Regular Rate, Rhythm No Edema No Gallop No JVD No Murmur Normal Peripheral Pulses Gastrointestinal: Normal Bowel Sounds No Organomegaly No Pulsatile Mass Non Tender Soft Extremity: Other (Left BKA with intact stump no edema is noted. Dorsalis pedis and posterior tibial pulses are 2+ on the right) Neurologic/Psychiatric: Other (Patient unarousable does move upper extremities with physical stimulation verbalizes with mild moan) Skin: Normal Color Warm/Dry Comments Laboratory Tests 08/12/16 02:25 08/12/16 08:03 Results Results/Procedures Lab Laboratory Tests 08/12/16 02:25 08/12/16 08:03 Assessment/Plan Admission Diagnosis 1. Altered mental status likely due to inadvertent benzodiazepine overdose aggravated by acute kidney injury likely caused by dehydration and possible underlying viral infection with some bronchitis and gastroenteritis symptoms. There is no evidence to suggest sepsis at this time about extent not warranted. I discussed the need to significantly cut back or discontinue benzodiazepine use in the future and we'll see about whether or not other medications can be limited. The patient had been recently started on a new oral antidiabetic medication and her insulin had been held will need to find out what this medication was. Her second creatinine had come down from a little over 3-2.47 which is encouraging. Until she is begins to wake up will need ICU monitoring. We will continue nothing by mouth status. She is currently maintaining saturations with normal respiration. It is been likely 24 hours since her last by mouth intake saw my estimation mechanical ventilation to protect airway risks outweigh potential benefits. 2. Acute kidney injury likely due to dehydration unable to locate any old BUN/ creatinine are creatinine levels to compare baseline. We'll repeat a.m. labs. 3. Type II diabetes mellitus when necessary sliding scale insulin and glucose monitoring for now. Clinical Quality Measures DVT/VTE Risk/Contraindication: Risk Factor Score Per Nursin RFS Level Per Nursing on Admit: 4+=Very High ASHLI WORTHINGTON MD Aug 12, 2016 10:39
[2016-08-12] MEDS ORDERED: TURM500C7 PO (13:36)
[2016-08-12] MEDS ORDERED: LACT1CAP75 PO (13:36)
[2016-08-12] MEDS ORDERED: DICL100G31 TP (13:43)
[2016-08-13] MEDS: NS IV 1000 ML 1,000 ML IV SCH ×2 (01:25→08:10)
[2016-08-13 04:00] VITALS: BP 110/53
[2016-08-13 04:41] LABS: BASOPHILS % (AUTO) 0 % (0-10); EOSINOPHILS # (AUTO) 0.2 10^3/uL (0.0-0.3); EOSINOPHILS % (AUTO) 3 % (0-10); LYMPHOCYTES # (AUTO) 2.1 X 10^3 (1.0-4.0); LYMPHOCYTES % (AUTO) 32 % (12-44); MEAN CORPUSCULAR HEMOGLOBIN 30 PG (25-34); MEAN CORPUSCULAR HGB CONC 33 G/DL (32-36); MEAN CORPUSCULAR VOLUME 91 FL (80-99); MONOCYTES # (AUTO) 0.7 X 10^3 (0.0-1.0); MONOCYTES % (AUTO) 10 % (0-12); NEUTROPHILS # (AUTO) 3.8 X 10^3 (1.8-7.8); NEUTROPHILS % (AUTO) 56 % (42-75); PLATELET COUNT 233 10^3/uL (130-400); RED BLOOD COUNT 3.81 10^6/uL (4.35-5.85); RED CELL DISTRIBUTION WIDTH 12.9 % (10.0-14.5); WHITE BLOOD COUNT 6.8 10^3/uL (4.3-11.0)
[2016-08-13 04:58] LABS: ANION GAP 8 MMOL/L (5-14); BLOOD UREA NITROGEN 12 MG/DL (7-18); BUN/CREATININE RATIO 14; CALCIUM 8.2 MG/DL (8.5-10.1); CARBON DIOXIDE 22 MMOL/L (21-32); CHLORIDE 111 MMOL/L (98-107); CREATININE SERUM 0.87 MG/DL (0.60-1.30); GFR ESTIMATED > 60; GLUCOSE 131 MG/DL (70-105); POTASSIUM 3.7 MMOL/L (3.6-5.0); SODIUM 141 MMOL/L (135-145)
[2016-08-13] MEDS: inSUlin (REGULAR) HUMAN 1 UNIT/0.01 ML (CHARGE PER UNIT) SC SCH (05:54)
[2016-08-13 07:00] VITALS: BP 115/47
[2016-08-13 08:00] VITALS: BP 119/52
[2016-08-13] MEDS ORDERED: LORA1TAB PO (08:40)
[2016-08-13] MEDS ORDERED: LISI40TA PO (08:41)
[2016-08-13 09:00] VITALS: BP 113/60
[2016-08-13 11:45] VITALS: BP 113/60
--- NOTE | 2016-08-15 13:57 | Physician Query-Final Dx ---
LYLY WHIPPLE 08/15/16 1357: Final Diagnosis Give Final Diagnosis Please give Final Diagnosis ASHLI WORTHINGTON MD 08/17/16 1628: Final Diagnosis Give Final Diagnosis unintentional drug overdose acute kidney injury due to dehydration DM 2 LYLY WHIPPLE Aug 15, 2016 13:57 ASHLI WORTHINGTON MD Aug 17, 2016 16:28
== END 2016-08-13 08:37 | disposition home or self-care (01) ==
LOC: EDUNIT# 02:16 → ER 02:19 → ICU 03:35 → UNDOADMOB 03:35 → ICU 04:52 → 4TH 08-13 11:16 → ICU 08-13 11:16 → UNDODISOB 08-13 11:45
PROVIDERS: ADMIT Internal Medicine; ATTEND Internal Medicine
DX: R41.82 Altered mental status, unspecified (principal); R11.2 Nausea with vomiting, unspecified; R42 Dizziness and giddiness; E11.9 Type 2 diabetes mellitus without complications; E86.0 Dehydration; N17.9 Acute kidney failure, unspecified; I10 Essential (primary) hypertension; E03.9 Hypothyroidism, unspecified; I95.9 Hypotension, unspecified; G47.34 Idiopathic sleep related nonobstructive alveolar hypoventilation; F17.210 Nicotine dependence, cigarettes, uncomplicated; Z79.4 Long term (current) use of insulin; Z89.512 Acquired absence of left leg below knee
CPT/HCPCS: 36415; 51702; 70450; 71010; 80048; 80053; 80306; 80320; 80329; 81000; 82150; 82805; 82962; 83690; 83735; 84439; 84443; 85025; 85610; 85730; 87088; 93005; 93041; 94760; 96360; G0378

== ENCOUNTER → 2017-04-14 | Outpatient (CLI) | payer MEDICARE, MEDICAID ==
[~2017-04-14] MED LIST changes: +DICL100G31 TP; +DICY10CA12 PO; +LACT1CAP75 PO; +LORA1TAB PO; +NF-SOLIF5T PO; +SAXA1TBM3 PO; +TURM1POW PO; +TURM500C7 PO; +iodoral PO
== END ==
LOC: RAD 10:41
DX: Z12.31 Encounter for screening mammogram for malignant neoplasm of breast (principal)
CPT/HCPCS: 77067

== ENCOUNTER → 2017-06-08 | Outpatient (CLI) | payer MEDICARE, MEDICAID ==
--- NOTE | 2017-06-08 08:10 | Diagnostic Imaging Report ---
Right breast diagnostic mammogram. Tomography was also performed. INDICATION: Focal asymmetry in the upper aspect of the right breast and multiple right breast calcifications. CAD is utilized. COMPARISON: 04/14/2017. FINDINGS: The right breast is composed of heterogeneously dense parenchyma which may decrease mammographic sensitivity. The calcifications are evaluated with magnification views. These appear to be nonsegmental in distribution, and some of these calcifications demonstrate layering on the lateral projection which suggests at least a component of milk of calcium benign calcifications. There is a nodule with lobulated circumscribed margins in the upper outer periareolar aspect of the right breast measuring 1.5 CM in size. IMPRESSION: 1. Likely benign calcifications. 2. Lobulated circumscribed mass in the upper outer periareolar region. Ultrasound evaluation pending. ACR BI-RADS Category 0: Incomplete. (Needs additional imaging evaluation). Result letter will be mailed to the patient. Note: At least 10% of breast cancer is not imaged by mammography. Dictated by: Dictated on workstation # [id number]
--- NOTE | 2017-06-08 09:02 | Diagnostic Imaging Report ---
Right breast ultrasound. INDICATION: Upper outer periareolar nodule. FINDINGS: At 11 o'clock zone 3 cm from the nipple there is a simple-appearing cyst seen measuring 1.6 cm. This matches the mammographic abnormality. There is no solid component. The four quadrants and retroareolar region of the right breast demonstrate no suspicious mass. Another smaller cyst closer to the nipple is also seen measuring 1.1 cm at 11 o'clock zone. IMPRESSION: Simple cysts in the right periareolar region around 11 o'clock zone explaining the masses seen on mammography. The calcifications seen on mammography are also probably benign. Six-month followup right breast mammogram to reassess the calcifications is recommended. ACR BI-RADS Category 3: Probably benign findings. Result letter will be mailed to the patient. Note: At least 10% of breast cancer is not imaged by mammography. Dictated by: Dictated on workstation # [id number]
== END ==
LOC: RAD 07:08
PROVIDERS: ATTEND Obstetrics & Gynecology
DX: R92.1 Mammographic calcification found on diagnostic imaging of breast (principal)
CPT/HCPCS: 76641

== ENCOUNTER → 2017-10-06 | Outpatient (CLI) | payer MEDICARE, MEDICAID ==
[~2017-10-06] MED LIST changes: -METO-274 PO; +METO-395 PO
--- NOTE | 2017-10-06 13:06 | Diagnostic Imaging Report ---
PROCEDURE: MR imaging cervical spine without contrast. TECHNIQUE: Multiplanar, multisequence MR imaging of the cervical spine was performed without contrast. INDICATION: Chronic neck pain and bilateral shoulder pain. COMPARISON: There are no previous studies available for comparison. FINDINGS: The T2 sagittal images show slight straightening of the cervical spine. This may be secondary to muscle spasm and/or positioning. There is desiccation of the discs at every level and there is narrowing of the disc spaces at C4-C5, C5-C6, and C6-C7. At the C4-C5 level, there is a broad-based disc protrusion centrally. The disc indents the ventral aspect of the thecal sac and narrows the AP diameter to 7.2 mm. There is also narrowing of the neuroforamen bilaterally at this level. At the C5-C6 level, there is also a disc bulge centrally. The disc flattens the ventral aspect of the thecal sac and narrows the AP diameter to 8.8 mm. There is also mild narrowing of the neuroforamen on the left at this level. At the C6-C7 level, there is a broad-based disc bulge eccentric to the left. The disc flattens the ventral aspect of the thecal sac and narrows the AP diameter to 8.1 mm. There is also narrowing of the neuroforamen bilaterally at this level, particularly on the left. The remainder of the cervical spine is unremarkable for spinal stenosis or nerve root encroachment. There is no abnormal signal arising from the cord or other vertebral bodies to indicate an acute abnormality. There is no sign of a paraspinal mass. The expected vertebral flow voids are evident bilaterally. IMPRESSION: 1. There is degenerative disc and bony disease involving the mid and lower cervical spine. The C4-C5 level is the most severely affected as there is spinal stenosis at this level as well as narrowing of the neuroforamen bilaterally. There is also mild/moderate central stenosis at C5-C6 and C6-C7 with neuroforaminal narrowing primarily on the left at these levels. 2. There is no sign of an acute bony abnormality or of a cord lesion. Dictated by: Dictated on workstation # [id number]
== END ==
LOC: RAD 10:35
PROVIDERS: ATTEND Orthopaedic Surgery
DX: M48.02 Spinal stenosis, cervical region (principal); M50.121 Cervical disc disorder at C4-C5 level with radiculopathy
CPT/HCPCS: 72141

== ENCOUNTER 2017-11-26 12:57 | Outpatient (RCR) | payer MEDICARE, MEDICAID | END 2017-11-26 14:36 | disposition home or self-care (01) | PROVIDERS: ATTEND Nurse Practitioner Family | DX: M50.321 Other cervical disc degeneration at C4-C5 level (principal); M50.322 Other cervical disc degeneration at C5-C6 level; M50.323 Other cervical disc degeneration at C6-C7 level ==

== ENCOUNTER → 2018-06-15 | Outpatient (CLI) | payer MEDICARE, MEDICAID ==
[~2018-06-15] MED LIST changes: +HYDR-4226 PO; -HYDR-757 PO; -OXCA150T PO; +OXCA150T18 PO; -POLY255P PO; +POLY255P16 PO
--- NOTE | 2018-06-15 13:05 | Diagnostic Imaging Report ---
INDICATION: Cough. COMPARISON: Comparison made with prior examination 08/12/2016. FINDINGS: The heart size, mediastinal configuration, and pulmonary vascularity are within normal limits. There is no pleural effusion, pneumothorax, or pneumonia. The osseous structures are unremarkable. IMPRESSION: No acute cardiopulmonary abnormality. Dictated by: Dictated on workstation # [id number]
== END ==
LOC: RAD 12:09
DX: R05 Cough (principal)
CPT/HCPCS: 71045

== ENCOUNTER 2018-12-23 13:56 | Observation (INO) | payer MEDICARE, MEDICAID ==
[~2018-12-23] VITALS: Ht 157.5 cm; Wt 86.6 kg
[2018-12-23] MEDS ORDERED: LACTATED RINGERS 1,000 ML IV SCH ×2 (14:00→15:00)
[2018-12-23] MEDS ORDERED: ONDANSETRON 4 MG/2 ML (SDV) Z0FRAN IVP ONE (14:15)
--- NOTE | 2018-12-23 14:18 | ED General ---
General Stated Complaint: DEHYDRATION;TROUBLE URINATING;DIZZINESS Source of Information: Patient Exam Limitations: No Limitations History of Present Illness Date Seen by Provider: December 23, 2018 Time Seen by Provider: 14:17 Initial Comments To ER reports of diarrhea 5 times yesterday watery and without blood, intermittent abdominal cramping. She has some right anterior groin pain, right flank pain. Today she awakened with nausea and vomiting but no diarrhea. She is also dizzy and has been since this morning. She states that she has double vision with 2 objects [id number], not one on top of the other. She states that she has had this type before improved with meclizine. She had a similar episode in 2017 and states that she was diagnosed with renal failure. [facility], she formerly saw Dr. Dillon Duran in [place]. She is a diabetic states that her blood sugars have been good in about the 115 range. She does report chest pain associated with coughing intermittently x 2 weeks, (none today). Denies abdominal pain. The chest pain is only present with and immediately after a coughing fit. 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 Timing/Duration: 1-2 Days Severity: Moderate Associated Systoms: Chest Pain, Cough; No Fever/Chills, No Headaches, No Loss of Appetite; Malaise, Nausea/Vomiting; No Seizure, No Shortness of Air, No Syncope; Weakness Allergies and Home Medications Allergies Coded Allergies: codeine (Verified Allergy, Unknown, 02/27/06) ibuprofen (Verified Allergy, Unknown, 02/27/06) metronidazole (Verified Allergy, Unknown, 02/27/06) penicillin G (Verified Allergy, Unknown, 02/27/06) Home Medications Baclofen 10 Mg Tablet, 10 MG PO TID PRN for MUSCLE SPASMS, (Reported) Dexlansoprazole 60 Mg bp, 60 MG PO DAILY, (Reported) Diclofenac Sodium 100 Gm Gel..gram., 2 GM TP QID PRN for PAIN, (Reported) Dicyclomine HCl 10 Mg Capsule, 10 MG PO TID PRN for ABDOMINAL PAIN, (Reported) Duloxetine HCl 60 Mg Capsule., 60 MG PO BID, (Reported) Estradiol 2 Mg Tablet, 4 MG PO DAILY, (Reported) TAKES 2 (2 MG) TABLETS Hydrochlorothiazide 50 Mg Tablet, 50 MG PO DAILY, (Reported) Lactobacillus Combo No.13 1 Each Capsule.dr, 1 CAP PO DAILY, (Reported) Levothyroxine Sodium 100 Mcg Tablet, 100 MCG PO DAILY, (Reported) Liothyronine Sodium 25 Mcg Tablet, 50 MCG PO DAILY, (Reported) TAKES 2 (25 MCG) TABLETS Lisinopril 40 Mg Tablet, 40 MG PO DAILY Prescribed by: ASHLI WORTHINGTON on 08/13/16 0841 Lorazepam 1 Mg Tablet, 1 MG PO HS Prescribed by: ASHLI WORTHINGTON on 08/13/16 0840 Metoprolol Succinate 100 Mg Tab.er.24h, 100 MCG PO DAILY, (Reported) Polyethylene Glycol 3350 255 Gm Powder, 17 GM PO DAILY PRN for CONSTIPATION, (Reported) Pregabalin 100 Mg Capsule, 100 MG PO TID, (Reported) Propylene Glycol/Peg 400 15 Ml Drp.lq.gel, 15 ML OP QID, (Reported) 2 DROPS IN EACH EYE QID Saxagliptin HCl/Metformin HCl 1 Each Tbmp.24hr, 1 TAB PO DAILY, (Reported) Turmeric Root Extract 500 Mg Capsule, 500 MG PO DAILY, (Reported) Patient Home Medication List Home Medication List Reviewed: Yes Review of Systems Review of Systems Constitutional: see HPI EENTM: see HPI Respiratory: see HPI, cough Cardiovascular: see HPI, chest pain Genitourinary: no symptoms reported Musculoskeletal: no symptoms reported Skin: no symptoms reported Psychiatric/Neurological: No Symptoms Reported Hematologic/Lymphatic: No Symptoms Reported Immunological/Allergic: no symptoms reported Past Oezkxlt-Xrwsap-Uvktla Hx Patient Social History Type Used: Cigarettes Recent Hopitalizations: No Immunizations Up To Date Tetanus Booster (TDap): Unknown PED Vaccines UTD: No Seasonal Allergies Seasonal Allergies: No Past Medical History Surgeries: Yes Abdominal, Amputation, Appendectomy, Bowel Surgery, Gallbladder, Hysterectomy, Oophorectomy, Orthopedic Respiratory: No Cardiac: Yes Hypertension Neurological: Yes Neuropathy Reproductive Disorders: Yes (HYST) 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 Genitourinary: No Gastrointestinal: Yes (GASTRITIS) Abdominal Hernia, Gastroesophageal Reflux, Stack's Esophagus, Diverticulosis, Esophagitis, Hiatal Hernia Musculoskeletal: Yes Amputee, Chronic Back Pain, Gout Endocrine: Yes Diabetes, Insulin dep, Hypothyroidsim HEENT: No Cancer: No Psychosocial: Yes Sleep Difficulties, Anxiety Integumentary: No Blood Disorders: No Adverse Reaction/Blood Tranf: No Physical Exam Vital Signs Vital Signs - First Documented 12/23/18 14:10 Temp 98.3 Pulse 65 Resp 18 B/P (MAP) 124/58 (80) Pulse Ox 92 Capillary Refill : Height, Weight, BMI Height: 5'2.00" Weight: 186lbs. 8.0oz. 84.482304fs; 33.8 BMI Method:Stated General Appearance: No Apparent Distress, WD/WN Eyes: Bilateral Eye Normal Inspection, Bilateral Eye PERRL, Bilateral Eye EOMI HEENT: PERRL/EOMI, Other (minimal horizontal nystagmus) Neck: Full Range of Motion, Normal Inspection Respiratory: Normal Breath Sounds, No Accessory Muscle Use, No Respiratory Distress Cardiovascular: Regular Rate, Rhythm, Normal Peripheral Pulses Gastrointestinal: Normal Bowel Sounds, Non Tender, Soft Extremity: Normal Capillary Refill, Normal Inspection Neurologic/Psychiatric: Alert, Oriented x3 Skin: Normal Color, Warm/Dry Progress/Results/Core Measures Suspected Sepsis SIRS Temperature: Pulse: Respiratory Rate: Laboratory Tests 12/23/18 14:20: White Blood Count 8.6 Blood Pressure / Mean: Laboratory Tests 12/23/18 14:20: Creatinine 2.00H, Platelet Count 245, Total Bilirubin 0.4 Results/Orders Lab Results Laboratory Tests Test 12/23/18 14:20 12/23/18 16:40 Range/Units White Blood Count 8.6 4.3-11.0 10^3/uL Red Blood Count 4.67 4.35-5.85 10^6/uL Hemoglobin 14.0 11.5-16.0 G/DL Hematocrit 42 35-52 % Mean Corpuscular Volume 89 80-99 FL Mean Corpuscular Hemoglobin 30 25-34 PG Mean Corpuscular Hemoglobin Concent 34 32-36 G/DL Red Cell Distribution Width 13.4 10.0-14.5 % Platelet Count 245 130-400 10^3/uL Mean Platelet Volume 11.8 H 7.4-10.4 FL Neutrophils (%) (Auto) 73 42-75 % Lymphocytes (%) (Auto) 17 12-44 % Monocytes (%) (Auto) 9 0-12 % Eosinophils (%) (Auto) 1 0-10 % Basophils (%) (Auto) 0 0-10 % Neutrophils # (Auto) 6.2 1.8-7.8 X 10^3 Lymphocytes # (Auto) 1.4 1.0-4.0 X 10^3 Monocytes # (Auto) 0.8 0.0-1.0 X 10^3 Eosinophils # (Auto) 0.1 0.0-0.3 10^3/uL Basophils # (Auto) 0.0 0.0-0.1 10^3/uL Sodium Level 140 135-145 MMOL/L Potassium Level 3.2 L 3.6-5.0 MMOL/L Chloride Level 103 98-107 MMOL/L Carbon Dioxide Level 26 21-32 MMOL/L Anion Gap 11 5-14 MMOL/L Blood Urea Nitrogen 24 H 7-18 MG/DL Creatinine 2.00 H 0.60-1.30 MG/DL Estimat Glomerular Filtration Rate 31 BUN/Creatinine Ratio 12 Glucose Level 99 70-105 MG/DL Calcium Level 9.2 8.5-10.1 MG/DL Corrected Calcium 9.1 8.5-10.1 MG/DL Magnesium Level 1.4 L 1.8-2.4 MG/DL Total Bilirubin 0.4 0.1-1.0 MG/DL Aspartate Amino Transf (AST/SGOT) 13 5-34 U/L Alanine Aminotransferase (ALT/SGPT) 14 0-55 U/L Alkaline Phosphatase 66 40-136 U/L Troponin I < 0.028 <0.028 NG/ML Total Protein 6.9 6.4-8.2 GM/DL Albumin 4.1 3.2-4.5 GM/DL Thyroid Stimulating Hormone (TSH) 0.14 L 0.35-4.94 UIU/ML Free Thyroxine 1.28 0.70-1.48 NG/DL Urine Color YELLOW Urine Clarity CLEAR Urine pH 5 5-9 Urine Specific [place] 1.015 L 1.016-1.022 Urine Protein 1+ H NEGATIVE Urine Glucose (UA) NEGATIVE NEGATIVE Urine Ketones NEGATIVE NEGATIVE Urine Nitrite NEGATIVE NEGATIVE Urine Bilirubin 1+ H NEGATIVE Urine Urobilinogen NORMAL NORMAL MG/DL Urine Leukocyte Esterase 1+ H NEGATIVE Urine RBC (Auto) NEGATIVE NEGATIVE Urine RBC NONE /HPF Urine WBC 2-5 /HPF Urine Squamous Epithelial Cells 5-10 /HPF Urine Crystals PRESENT H /LPF Urine Amorphous Sediment RARE ERNST URATES H /LPF Urine Bacteria TRACE /HPF Urine Casts PRESENT /LPF Urine Hyaline Casts 2-5 H /LPF Urine Mucus NEGATIVE /LPF Urine Culture Indicated YES Urine Opiates Screen NEGATIVE NEGATIVE Urine Oxycodone Screen NEGATIVE NEGATIVE Urine Methadone Screen NEGATIVE NEGATIVE Urine Propoxyphene Screen NEGATIVE NEGATIVE Urine Barbiturates Screen NEGATIVE NEGATIVE Ur Tricyclic Antidepressants Screen NEGATIVE NEGATIVE Urine Phencyclidine Screen NEGATIVE NEGATIVE Urine Amphetamines Screen NEGATIVE NEGATIVE Urine Methamphetamines Screen NEGATIVE NEGATIVE Urine Benzodiazepines Screen NEGATIVE NEGATIVE Urine Cocaine Screen NEGATIVE NEGATIVE Urine Cannabinoids Screen NEGATIVE NEGATIVE My Orders Orders - TABITHA HASSAN OUTSIDE FOOD SERVER Cbc With Automated Diff (12/23/18 13:57) Comprehensive Metabolic Panel (12/23/18 13:57) Ua Culture If Indicated (12/23/18 13:57) Drug Screen Stat (Urine) (12/23/18 13:57) Ed Iv/Invasive Line Start (12/23/18 13:57) Lactated Ringers (Lr 1000 Ml Iv Solution (12/23/18 14:00) Ondansetron Injection (Zofran Injectio (12/23/18 14:15) Magnesium (12/23/18 14:14) Thyroid Stimulating Hormone (12/23/18 14:14) Free T4 (Free Thyroxine) (12/23/18 14:14) Troponin I (12/23/18 14:32) Chest 1 View, Ap/Pa Only (12/23/18 14:32) Ekg Tracing (12/23/18 14:32) Oxygen-Administer (12/23/18 15:00) Lactated Ringers (Lr 1000 Ml Iv Solution (12/23/18 15:00) Magnesium Oxide Tablet (Mag Ox Tablet) (12/23/18 15:15) Potassium Chloride (Tablet) (K Dur Table (12/23/18 15:15) Meclizine Tablet (Antivert Tablet) (12/23/18 15:15) Ct Head Wo (12/23/18 15:09) Urine Culture (12/23/18 16:40) Medications Given in ED Current Medications Medications Dose Ordered Sig/Val Route Start Time Stop Time Status Last Admin Dose Admin Magnesium Oxide 400 mg ONCE ONCE PO 12/23/18 15:15 12/23/18 15:16 DC 12/23/18 15:51 400 MG Meclizine HCl 25 mg ONCE ONCE PO 12/23/18 15:15 12/23/18 15:16 DC 12/23/18 15:52 25 MG Ondansetron HCl 8 mg ONCE ONCE IVP 12/23/18 14:15 12/23/18 14:16 DC 12/23/18 14:29 8 MG Potassium Chloride 40 meq ONCE ONCE PO 12/23/18 15:15 12/23/18 15:16 DC 12/23/18 15:51 40 MEQ Vital Signs/I&O 12/23/18 14:10 Temp 98.3 Pulse 65 Resp 18 B/P (MAP) 124/58 (80) Pulse Ox 92 Capillary Refill : Departure Communication (Admissions) Time/Spoke to Admitting Phy: 18:07 1721-patient reports that the dizziness is better but still present even at rest. Given renal function will do MRI in am as it is unavailable currently. She has no other neurologic deficits. Discussed with Dr Palomares, will admit observation. Impression Primary Impression: Vertigo Additional Impressions: Acute renal insufficiency Nausea vomiting and diarrhea Disposition: 01 HOME, SELF-CARE Condition: Stable Admissions Decision to Admit Reason: Admit from ER (General) Decision to Admit/Date: December 23, 2018 Time/Decision to Admit Time: 18:07 Departure-Patient Inst. Referrals: DILLON DURAN MD (PCP/Family) Primary Care Physician TABITHA HASSAN APRN December 23, 2018 14:18
[2018-12-23 14:30] LABS: BASOPHILS % (AUTO) 0 % (0-10); EOSINOPHILS # (AUTO) 0.1 10^3/uL (0.0-0.3); EOSINOPHILS % (AUTO) 1 % (0-10); HEMATOCRIT 42 % (35-52); LYMPHOCYTES # (AUTO) 1.4 X 10^3 (1.0-4.0); LYMPHOCYTES % (AUTO) 17 % (12-44); MEAN CORPUSCULAR HEMOGLOBIN 30 PG (25-34); MEAN CORPUSCULAR HGB CONC 34 G/DL (32-36); MEAN CORPUSCULAR VOLUME 89 FL (80-99); MEAN PLATELET VOLUME 11.8 FL (7.4-10.4); MONOCYTES # (AUTO) 0.8 X 10^3 (0.0-1.0); MONOCYTES % (AUTO) 9 % (0-12); NEUTROPHILS # (AUTO) 6.2 X 10^3 (1.8-7.8); NEUTROPHILS % (AUTO) 73 % (42-75); PLATELET COUNT 245 10^3/uL (130-400); RED CELL DISTRIBUTION WIDTH 13.4 % (10.0-14.5); WHITE BLOOD COUNT 8.6 10^3/uL (4.3-11.0)
[2018-12-23 14:51] LABS: ALBUMIN 4.1 GM/DL (3.2-4.5); BILIRUBIN,TOTAL 0.4 MG/DL (0.1-1.0); CALCIUM 9.2 MG/DL (8.5-10.1); MAGNESIUM 1.4 MG/DL (1.8-2.4); POTASSIUM 3.2 MMOL/L (3.6-5.0); TOTAL PROTEIN 6.9 GM/DL (6.4-8.2)
--- NOTE | 2018-12-23 14:53 | NUR ---
REPORTED BLOOD PRESSURE OF 99/56 AND LOW OXYGEN TO TABITHA HASSAN
[2018-12-23 15:12] LABS: FREE T4 (FREE THYROXINE) 1.28 NG/DL (0.70-1.48)
[2018-12-23] MEDS ORDERED: MAGNESIUM OXIDE (MAG-OX)400 MG TAB PO ONE (15:15)
[2018-12-23] MEDS ORDERED: KCL 20 MEQ TAB (K-DUR) PO ONE (15:15)
[2018-12-23] MEDS ORDERED: MECLIZINE 25 MG (ANTIVERT) TAB PO ONE (15:15)
--- NOTE | 2018-12-23 15:43 | Diagnostic Imaging Report ---
Patient History: Chest pain, nausea and vomiting, coughing. Technique: Single frontal view of the chest. Comparison: 06/17/2018 FINDINGS: The lung volumes are normal. No focal consolidation is seen. No large pleural effusion or pneumothorax is seen. The cardiomediastinal silhouette is normal in size and contour. No acute osseous abnormality is seen. Cervical spine fusion hardware is noted. IMPRESSION: No acute pulmonary abnormality seen. Dictated by: Dictated on workstation # [id number]
--- NOTE | 2018-12-23 15:53 | Diagnostic Imaging Report ---
PROCEDURE: CT head without contrast. TECHNIQUE: Multiple contiguous axial images were obtained through the brain without the use of intravenous contrast. Auto Exposure Controls were utilized during the CT exam to meet ALARA standards for radiation dose reduction. INDICATION: Nausea and vomiting. COMPARISON: Comparison is made with prior head CT from 08/12/2016. FINDINGS: Ventricles and sulci are within normal limits. No sulcal effacement or midline shift is seen. No acute intra-axial or extra-axial hemorrhage is detected. Cisterns are patent. Visualized paranasal sinuses are clear. IMPRESSION: No acute intracranial process is detected. Dictated by: Dictated on workstation # [id number]
[2018-12-23 16:54] LABS: CLARITY,URINE CLEAR; COLOR,URINE YELLOW; GLUCOSE, URINE (UA) NEGATIVE (NEGATIVE); KETONES,URINE NEGATIVE (NEGATIVE); LEUKOCYTE ESTERASE ,URINE 1+ (NEGATIVE); NITRITE,URINE NEGATIVE (NEGATIVE); PH,URINE 5 (5-9); PROTEIN,URINE 1+ (NEGATIVE); UROBILINOGEN,URINE NORMAL (NORMAL)
[2018-12-23 17:03] LABS: BACTERIA,URINE TRACE /HPF; BILIRUBIN,URINE 1+ (NEGATIVE)
[2018-12-23 17:04] LABS: AMORPHOUS SEDIMENT,UR RARE AMOR URATES /LPF
[2018-12-23 17:06] LABS: AMPHETAMINE SCREEN, URINE NEGATIVE (NEGATIVE); BARBITURATE SCREEN URINE NEGATIVE (NEGATIVE); BENZODIAZEPINES SCREEN URINE NEGATIVE (NEGATIVE); CANNABINOID SCREEN, URINE NEGATIVE (NEGATIVE); COCAINE SCREEN URINE NEGATIVE (NEGATIVE); METHADONE STAT NEGATIVE (NEGATIVE); METHAMPHETAMINE SCREEN URINE S NEGATIVE (NEGATIVE); OPIATE SCREEN URINE NEGATIVE (NEGATIVE); OXYCODONE STAT NEGATIVE (NEGATIVE); PROPOXYPHENE STAT NEGATIVE (NEGATIVE); TRICYCLIC ANTIDEPRESSANTS SCRE NEGATIVE (NEGATIVE)
[2018-12-23 18:27] VITALS: BP 119/68
[2018-12-23] MEDS: LACTATED RINGERS 1,000 ML IV SCH (18:30)
--- NOTE | 2018-12-23 18:30 | NUR ---
PAT RAPHAEL admitted to room 405-1, with an admitting diagnosis of N/V/D, VERTIGO AND DEHYDRATION, on 12/23/18 from ED via BED/CART, accompanied by DAUGHTER AND ED STAFF. PAT RAPHAEL introduced to surroundings, call light, bed controls, phone, TV, temperature control, lights, meal times, smoking policy, visitor policy, side rail policy, bathrooms and showers. Patient Rights given to patient in the handbook. PAT RAPHAEL verbalizes understanding that [facility] is not responsible for the loss or damage to any personal effects or valuables that are kept in the patients possession during their hospitalization.
[2018-12-23] MEDS ORDERED: SCOPOLAMINE 1.5 MG (TRANSDERM-SCOP) PATCH TOP SCH (19:00)
[2018-12-23] MEDS ORDERED: MECLIZINE 25 MG (ANTIVERT) TAB PO PRN (19:15)
[2018-12-23] MEDS ORDERED: ONDANSETRON 4 MG/2 ML (SDV) Z0FRAN IV PRN (19:15)
[2018-12-23 20:58] VITALS: BP 114/56
[2018-12-23 23:44] VITALS: BP 97/56
[2018-12-24] MEDS: LACTATED RINGERS 1,000 ML IV SCH (03:31)
[2018-12-24 04:00] VITALS: BP 108/65
[2018-12-24 04:56] LABS: BASOPHILS % (AUTO) 0 % (0-10); EOSINOPHILS # (AUTO) 0.1 10^3/uL (0.0-0.3); EOSINOPHILS % (AUTO) 2 % (0-10); HEMATOCRIT 37 % (35-52); HEMOGLOBIN 12.1 G/DL (11.5-16.0); LYMPHOCYTES % (AUTO) 34 % (12-44); MEAN CORPUSCULAR HEMOGLOBIN 30 PG (25-34); MEAN CORPUSCULAR HGB CONC 33 G/DL (32-36); MEAN CORPUSCULAR VOLUME 90 FL (80-99); MEAN PLATELET VOLUME 12.1 FL (7.4-10.4); MONOCYTES # (AUTO) 0.8 X 10^3 (0.0-1.0); MONOCYTES % (AUTO) 13 % (0-12); NEUTROPHILS % (AUTO) 51 % (42-75); PLATELET COUNT 196 10^3/uL (130-400); RED CELL DISTRIBUTION WIDTH 13.2 % (10.0-14.5); WHITE BLOOD COUNT 5.9 10^3/uL (4.3-11.0)
[2018-12-24 05:26] LABS: ALANINE AMINOTRANSFERASE 10 U/L (0-55); ALBUMIN 3.4 GM/DL (3.2-4.5); ALKALINE PHOSPHATASE 56 U/L (40-136); BILIRUBIN,TOTAL 0.4 MG/DL (0.1-1.0); BUN/CREATININE RATIO 15; CALCIUM 9.2 MG/DL (8.5-10.1); CARBON DIOXIDE 28 MMOL/L (21-32); CHLORIDE 107 MMOL/L (98-107); CREATININE SERUM 1.11 MG/DL (0.60-1.30); GFR ESTIMATED > 60; GLUCOSE 128 MG/DL (70-105); POTASSIUM 3.5 MMOL/L (3.6-5.0); SODIUM 143 MMOL/L (135-145); TOTAL PROTEIN 5.7 GM/DL (6.4-8.2)
[2018-12-24 05:34] LABS: NEUTROPHILS % (MANUAL) 48 %
[2018-12-24 05:35] LABS: EOSINOPHILS % (MANUAL) 3 %; LYMPHOCYTES % (MANUAL) 37 %; MONOCYTES % (MANUAL) 12 %; RBC MORPH NORMAL
[2018-12-24 08:00] VITALS: BP 110/59
[2018-12-24] MEDS ORDERED: LISI-552 PO (09:24)
[2018-12-24] MEDS ORDERED: INSU300I SC (09:24)
[2018-12-24] MEDS ORDERED: FLUT16SP22 NS (09:24)
[2018-12-24] MEDS ORDERED: ASCO10006 PO (09:24)
[2018-12-24] MEDS ORDERED: ATOR20TA66 PO (09:24)
[2018-12-24] MEDS ORDERED: CHOL5000 PO (09:24)
[2018-12-24] MEDS ORDERED: SILV25CR21 TOP (09:24)
[2018-12-24] MEDS ORDERED: ESTR1TAB24 PO (09:24)
[2018-12-24] MEDS ORDERED: LD5O35 TOP (09:24)
[2018-12-24] MEDS ORDERED: NF-SOLIF5T PO (09:24)
[2018-12-24] MEDS ORDERED: POLY17PO6 PO (09:24)
[2018-12-24] MEDS ORDERED: BUSP15TA60 PO (09:24)
[2018-12-24] MEDS ORDERED: BUPR300T51 PO (09:24)
[2018-12-24] MEDS ORDERED: SODI30SP2 NS (09:24)
--- NOTE | 2018-12-24 09:28 | NUR ---
WENT OVER THE EXT MED HX WITH THE PATIENT WELL HER VERY DETAILED MEDICATION LIST. SHE KNOWS EXACTLY HOW SHE TAKES EACH MEDICATION. SHE STATES HER LIOTHYRONINE WAS STOPPED LAST MONTH AND SHE IS NO LONGER TAKING IT. SHE TAKES VITAMIN C 2000MG BID, SALINE NASAL SPRAY EVERY MORNING, AND VITAMIN D 5000 UNITS AT NOON OTC.
--- NOTE | 2018-12-24 10:22 | Short Stay Summary-Hospitalist ---
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 Jones but recently transferred her care to [facility] primary care because she thought she was becoming too complicated for Dr. Jones. Patient presented to the ER with elevated creatinine and severe vertigo. The patient reports that she does have a lot of allergies and is unsure how this is related to her vertigo. Her creatinine is now normal after IV fluids were given last night and I will order physical therapy and occupational therapy to assure she can get around but her daughter is her SKIL helper and she is able to bring her walker to the patient and monitor her closely for falls at home. I restarted all of her home medications and sent a prescription of meclizine to [facility]. Source: patient Exam Limitations: no limitations Date Seen 12/24/18 Time Seen by a Provider: 10:00 Attending Physician Nakia Smyth DO PCP Dillon Jones MD Referring Physician Date of Admission December 23, 2018 at 17:44 Home Medications & Allergies Home Medications Reviewed patient Home Medication Reconciliation performed by pharmacy medication reconciliations radio technician and/or nursing. Patients Allergies have been reviewed. Allergies Allergies Coded Allergies codeine (Verified Allergy, Unknown, 02/27/06) ibuprofen (Verified Allergy, Unknown, 02/27/06) metronidazole (Verified Allergy, Unknown, 02/27/06) penicillin G (Verified Allergy, Unknown, 02/27/06) Past Hxsizjf-Mfrnfq-Anoxfm Hx Past Med/Social Hx: Reviewed Nursing Past Med/Soc Hx, Reviewed and Corrections made Patient Social History Marrital Status: single Employed/Student: unemployed Alcohol Use: Denies Use Recreational Drug Use: No Smoking Status: Former Smoker Type Used: Cigarettes 2nd Hand Smoke Exposure: No Recent Foreign Travel: No Contact w/other who traveled: No Recent Hopitalizations: No Recent Infectious Disease Expo: No Immunizations Up To Date Tetanus Booster (TDap): Unknown Pediatric: No Seasonal Allergies Seasonal Allergies: No Past Medical History Surgeries: Abdominal, Amputation, Appendectomy, Bowel Surgery, Gallbladder, Hysterectomy, Oophorectomy, Orthopedic Cardiac: Hypertension Neurological: Neuropathy : No Reproductive: Yes (HYST) Hysterectomy Gastrointestinal: Abdominal Hernia, Gastroesophageal Reflux, Stack's Es ophagus, Diverticulosis, Esophagitis, Hiatal Hernia Musculoskeletal: Amputee, Chronic Back Pain, Gout Endocrine: Diabetes, Insulin dep, Hypothyroidsim Psychosocial: Sleep Difficulties, Anxiety History of Blood Disorders: No Adverse Reaction to Blood Phan: No Review of Systems Constitutional: see HPI, dizziness, weakness EENTM: no symptoms reported Respiratory: no symptoms reported Cardiovascular: no symptoms reported Gastrointestinal: no symptoms reported Genitourinary: no symptoms reported Musculoskeletal: no symptoms reported Skin: no symptoms reported Psychiatric/Neurological: Anxiety All Other Systems Reviewed Negative Unless Noted: Yes Physical Exam Physical Exam Vital Signs Vital Signs - First Documented 12/23/18 12/23/18 14:10 20:00 Temp 98.3 Pulse 65 Resp 18 B/P (MAP) 124/58 (80) Pulse Ox 92 O2 Flow Rate 2.00 Capillary Refill : Less Than 3 Seconds Height, Weight, BMI Height: 5'2.00" Weight: 191lbs. 0.0oz. 86.437058wp; 34.9 BMI Method:Stated General Appearance: No Apparent Distress, WD/WN, Chronically ill Eyes: Bilateral Eye Normal Inspection, Bilateral Eye PERRL, Bilateral Eye EOMI HEENT: PERRL/EOMI, Normal ENT Inspection, Pharynx Normal, Other (minimal horizontal nystagmus) Neck: Full Range of Motion, Normal Inspection, Non Tender, Supple Respiratory: Chest Non Tender, Lungs Clear, Normal Breath Sounds, No Accessory Muscle Use, No Respiratory Distress Cardiovascular: Regular Rate, Rhythm, No Edema, No Gallop, No JVD, No Murmur, Normal Peripheral Pulses Gastrointestinal: Normal Bowel Sounds, Non Tender, Soft Extremity: Normal Capillary Refill, Normal Inspection, Normal Range of Motion, Non Tender, No Calf Tenderness, Other (amputation AKA) Neurologic/Psychiatric: Alert, Oriented x3, No Motor/Sensory Deficits, Normal Mood/Affect, aircraft armament mechanic II-XII Norm as Tested Skin: Normal Color, Warm/Dry Results Results/Procedures Labs Laboratory Tests 12/23/18 14:20 12/24/18 04:11 Patient resulted labs reviewed. Short Stay Diagnosis Discharge Diagnosis-Short Stay Admission Diagnosis Assessment: Vertigo ARF Dehydration Allergies Anxiety Chronic disability Final Discharge Diagnosis Assessment: Vertigo-improved ARF-resolved Dehydration Allergies Anxiety Chronic disability Conclusion Plan DC home SKIL worker is her daughter Restart all home meds Diagnosis/Problems Diagnosis/Problems (1) Vertigo Status: Acute (2) Acute renal insufficiency Status: Acute (3) Nausea & vomiting Status: Acute Qualifiers: (4) Dizziness Status: Acute Clinical Quality Measures DVT/VTE Risk/Contraindication: Risk Factor Score Per Nursin RFS Level Per Nursing on Admit: 4+=Very High NAKIA SMYTH DO December 24, 2018 10:22
[2018-12-24] MEDS ORDERED: MECL-106 PO (10:28)
[2018-12-24] MEDS ORDERED: KCL 10 MEQ TAB (MICRO K) PO ONE (10:30)
--- NOTE | 2018-12-24 11:23 | NUR ---
CM DISCHARGE PLANNING: Discharging to home today self care. Dahlia denies any needs for dismissal. She reports that she has a shower chair, a lift chair, a cane, crutches, walker, et does not think that she needs any other equipment. She also reports that her daughter is her SKIL worker et that she does not want any HHC or need any other in home services. Dahlai is waiting for her daughter to bring her stump sock so that she can don her prosthetic leg et ambulate with Physical Therapy before she leaves. She denies any other needs or concerns.
[2018-12-24 11:43] VITALS: BP 126/70
[2018-12-24] MEDS ORDERED: NON-FORMULARY MEDICATION 1 EA EA (Cholecalciferol (Vitamin D3) (Vitamin D3) 5,000 UNIT) PO SCH (12:00)
[2018-12-24] MEDS ORDERED: DICLOFENAC SODIUM 2 GM TP SCH (13:00)
[2018-12-24] MEDS ORDERED: DICYCLOMINE 10 MG (BENTYL) CAP PO SCH (13:00)
[2018-12-24] MEDS ORDERED: busPIRone 15 MG (BUSPAR) TABLET PO SCH (13:00)
[2018-12-24] MEDS ORDERED: PREGABALIN 100 MG (LYRICA) CAPSULE PO SCH (13:00)
[2018-12-24] MEDS ORDERED: BACLOFEN 10 MG (LIORESAL) TAB PO SCH (13:00)
--- NOTE | 2018-12-24 14:32 | Occ Therapy Progress Note ---
Therapy Progress Note According to NSG pt is ad jairo in room getting around independently along with completing her ADLS in room independently. I personally spoke to pt and she stated she is independently and stated no concerns at this time. OT completed SCREEN only. OT services are not indicated secondary to pt being independent. d/c OT orders at this time. ALEXIS BONNER OT December 24, 2018 14:32
--- NOTE | 2018-12-24 14:42 | Physical Therapy Evaluation ---
PT Evaluation-General Medical Diagnosis Admission Date December 23, 2018 at 17:44 Medical Diagnosis: N/V/D, vertigo, dehydration Onset Date: December 23, 2018 Therapy Diagnosis Therapy Diagnosis: impaired ambulation Height/Weight Height (Feet): 5 Height (Inches): 2.00 Weight (Pounds): 191 Weight (Ounces): 0.0 Precautions Precautions/Isolations: Fall Prevention, Standard Precautions Weight Bear Status Right Lower Extremity: Right Weight Bearing/Tolerated Left Lower Extremity: Left Weight Bearing/Tolerated [facility]-PROSTHETIC Referral Physician: Nakia Palomares DO Reason for Referral: Evaluation/Treatment Medical History Additional Medical History Past Medical History Surgeries: Yes Abdominal, Amputation, Appendectomy, Bowel Surgery, Gallbladder, Hysterectomy, Oophorectomy, Orthopedic Respiratory: No Cardiac: Yes Hypertension Neurological: Yes Neuropathy Reproductive Disorders: Yes (HYST) 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 History: Hysterectomy Genitourinary: No Gastrointestinal: Yes (GASTRITIS) Abdominal Hernia, Gastroesophageal Reflux, Stack's Esophagus, Diverticulosis, Esophagitis, Hiatal Hernia Musculoskeletal: Yes Amputee, Chronic Back Pain, Gout Endocrine: Yes Diabetes, Insulin dep, Hypothyroidsim HEENT: No Cancer: No Psychosocial: Yes Sleep Difficulties, Anxiety Integumentary: No Blood Disorders: No Adverse Reaction/Blood Tranf: No Reviewed History: Yes Social History Home: Single Level Current Living Status: Alone Entry Into Home: Ramp, Stairs With Railing Patient states she has a couple of steps with railing to enter her home or a ramp Prior/Core FIM Prior Level of Function Therapy Code Descriptions/Definitions Functional [place] Measure: 0=Not Assessed/NA 4=Minimal Assistance 1=Total Assistance 5=Supervision or Setup 2=Maximal Assistance 6=Modified [place] 3=Moderate Assistance 7=Complete [place] Therapy Quality Codes: 6 Independent with activity with or without an assistive device 5 Patient requires set up or clean up by helper. Patient completes activity by themselves 4 Supervision or touching assist (CGA). [place] provide cues , steadying assist 3 The helper provides less than half the effort to complete the activity 2 The helper provides more than half the effort to complete the activity 1 Dependent. The helper does all the effort to complete an activity 7 Patient refused to complete or attempt activity 9 The patient did not perform the activity before the current illness or injury 88 Not attempted due to Medical conditions or safety concerns Functional Abilities and Goals: Independent: Patient completed the activities by him/herself, with or without an assistive device, with no assistance from a helper. Needed Some Help: Patient needed partial assistance from another person to complete activities. Dependent: A helper completed the activities for the patient. Unknown: Not Applicable: Bed Mobility: 6 Transfers (B,C,W/C) (FIM): 6 Gait: 6 Stairs: 6 Indoor Mobility (Ambulation): Independent Stairs: Independent Patient was ambulating using axillary crutches and a prosthetic leg. PT Evaluation-Current Subjective Patient sitting EOB pre tx, agrees to PT, she already has donned her prosthetic leg. Patient has no complaints of pain. She states she still has very slight dizziness. Pt/Family Goals "I'm going home". Objective Patient Orientation: Person, Place, Situation ROM/Strength ROM Lower Extremities WNL, except for amputation Sensory Vision: Wears Glasses Hearing: Functional Transfers Therapy Code Descriptions/Definitions Functional [place] Measure: 0=Not Assessed/NA 4=Minimal Assistance 1=Total Assistance 5=Supervision or Setup 2=Maximal Assistance 6=Modified [place] 3=Moderate Assistance 7=Complete [place] Transfers (B, C, W/C) (FIM): 7 Scootin Rollin Supine to/from Sit: 7 Sit to/from Stand: 7 Patient is independent with bed mobility and transfers, she had no LOB or unsteadiness. Gait Mode of Locomotion: Walk Anticipated Mode of Locomotion: Walk Gait (FIM): 6 Distance: 150' Gait Level of Assist: 6 Gait Assistive Device: FWW Comments/Gait Description Patient ambulated 150' with a rolling walker with mod I, no LOB or unsteadiness. Balance Sitting Static: Normal Sitting Dynamic: Normal Standing Static: Normal Standing Dynamic: Good Assessment/Needs Patient is safe with bed mobility and transfers and safe with ambulation using a rolling walker. Patient is set to discharge from this facility today. Rehab Potential: Good PT Plan Problem List Problem List: Other Treatment/Plan Treatment Plan: Discontinue PT Treatment Plan: Other Treatment Duration: December 24, 2018 Frequency: Estimated Hrs Per Day: Other Patient and/or Family Agrees t: Yes Safety Risks/Education Patient Education: Gait Training, Transfer Techniques, Correct Positioning, Safety Issues Teaching Recipient: Patient Teaching Methods: Demonstration, Discussion Response to Teaching: Reinforcement Needed Discharge Recommendations Therapy D/C Recommendations: Home w/ Family Support Time/GCodes Time In: 1420 Time Out: 1430 Total Billed Treatment Time: 10 Total Billed Treatment 1 visit EVL STAR ARAUJO PT December 24, 2018 14:42
[2018-12-24 14:50] VITALS: BP 126/70
[2018-12-24] MEDS ORDERED: NON-FORMULARY MEDICATION 1 EA EA (Duloxetine HCl 60 MG) PO SCH (17:00)
[2018-12-24] MEDS ORDERED: [UNRECOGNIZED DRUG - OTHER] SC SCH (21:00)
[2018-12-24] MEDS ORDERED: meTOprolol SUCCINATE 100 MG (TOPROL XL) TAB PO SCH (21:00)
[2018-12-24] MEDS ORDERED: FLUTICASONE NASAL SPRAY (FLONASE) 16 GM BTL NS SCH (21:00)
[2018-12-24] MEDS ORDERED: ASCORBIC ACID 2000 MG PO SCH (21:00)
[2018-12-24] MEDS ORDERED: ESTRADIOL 1 MG TAB (ESTRACE) PO SCH (21:00)
[2018-12-24] MEDS ORDERED: INSULIN GLARGINE HUM REC ANLOG 23 UNIT SC SCH (21:00)
[2018-12-24] MEDS ORDERED: ATORVASTATIN 20 MG (LIPITOR) TABLET PO SCH (21:00)
[2018-12-25] MEDS ORDERED: LEVOTHYROXINE 100 MCG (LEVOTHROID) TAB PO SCH (06:00)
[2018-12-25] MEDS ORDERED: SODIUM CHLORIDE NS SCH (09:00)
[2018-12-25] MEDS ORDERED: NON-FORMULARY MEDICATION 1 EA EA (Bupropion HCl (Bupropion Xl) 300 MG) PO SCH (09:00)
[2018-12-25] MEDS ORDERED: SOLIFENACIN 5 MG TAB (VESICARE) NON-FORMULARY PO SCH (09:00)
[2018-12-25] MEDS ORDERED: NON-FORMULARY MEDICATION 1 EA EA (Dexlansoprazole (Dexilant) 60 MG) PO SCH (09:00)
[2018-12-25] MEDS ORDERED: lisINopril 20 MG (PRINIVIL) TABLET PO SCH (09:00)
[2018-12-25] MEDS ORDERED: [UNRECOGNIZED DRUG - OTHER] NS SCH (09:00)
[2018-12-25] MEDS ORDERED: NON-FORMULARY MEDICATION 1 EA EA (Hydrochlorothiazide 50 MG) PO SCH (09:00)
[2018-12-25] MEDS ORDERED: [UNRECOGNIZED DRUG - OTHER] PO SCH (09:00)
[2018-12-26] MEDS ORDERED: SCOPOLAMINE PATCH REMOVAL TP SCH (18:59)
== END 2018-12-24 10:28 | disposition home or self-care (01) ==
LOC: EDUNIT# 13:56 → ER 13:57 → UNDOADMOB 17:44 → 4TH 17:44 → UNDODISOB 12-24 14:50
PROVIDERS: ADMIT Internal Medicine; ATTEND Internal Medicine
DX: N17.9 Acute kidney failure, unspecified (principal); E86.0 Dehydration; R42 Dizziness and giddiness; J30.9 Allergic rhinitis, unspecified; R11.2 Nausea with vomiting, unspecified; R19.7 Diarrhea, unspecified; E11.40 Type 2 diabetes mellitus with diabetic neuropathy, unspecified; I10 Essential (primary) hypertension; E03.9 Hypothyroidism, unspecified; K21.9 Gastro-esophageal reflux disease without esophagitis; K44.9 Diaphragmatic hernia without obstruction or gangrene; K29.70 Gastritis, unspecified, without bleeding; F41.9 Anxiety disorder, unspecified; R53.81 Other malaise; Z79.899 Other long term (current) drug therapy
CPT/HCPCS: 36415; 70450; 71045; 80053; 80306; 81000; 83735; 84439; 84443; 84484; 85007; 85025; 85027; 87088; 93005; 96361; 96374; G0378

== ENCOUNTER 2019-03-31 13:55 | Outpatient (RCR) | payer MEDICARE, MEDICAID ==
[~2019-03-31 13:55] MED LIST changes: +ASCO10006 PO; +ATOR20TA66 PO; +BUPR300T51 PO; +BUSP15TA60 PO; -DULO60CA58 PO; +DULO60CA59 PO; +ESTR1TAB24 PO; +FLUT16SP22 NS; +INSU300I SC; +LD5O35 TOP; +LIOT25TA PO; -LIOT25TA3 PO; +LISI-552 PO; +MECL-106 PO; +POLY17PO6 PO; +SILV25CR21 TOP; +SODI30SP2 NS
== END 2019-04-01 12:13 | disposition home or self-care (01) ==
PROVIDERS: ATTEND Internal Medicine
DX: M25.511 Pain in right shoulder (principal)